=== PATIENT | female | born 1940 | race Caucasian/White ===

== ENCOUNTER 2022-08-13 10:39 | Inpatient (IN) ==
--- NOTE | 2022-08-13 11:44 | XRay Report ---
INDICATION: weakness TECHNIQUE: AP portable upright chest x-ray COMPARISON: Previous chest x-rays dated 01/29/2022, 10/12/2017 FINDINGS: Lungs:Right basilar infiltrate consistent with pneumonia. Follow-up radiographs recommended. No left-sided infiltrate identified Heart, vascular:No significant cardiomegaly. Pulmonary vascularity is normal. No pulmonary edema or pulmonary congestion Mediastinum, nilda:There are surgical clips suggesting previous thyroidectomy. Patient has undergone previous anterior cervical fusion Pleura:No pleural fluid. No pleural-based mass or calcification Skeletal:Negative. IMPRESSION: Right basilar infiltrate consistent with pneumonia Interpreted and Authenticated by: Froylan Sanchez 08/13/22
[2022-08-13 11:45] LABS: POC Calcium, Ionized 1.11 (1.16-1.32); POC Creatinine 3.1 (0.6-1.2); POC Potassium 5.8 (3.3-5.1)
[2022-08-13] MEDS ORDERED: 0.9 % SODIUM CHLORIDE 500 ML IV ONE (11:49)
--- NOTE | 2022-08-13 12:53 | Emergency Department Note ---
Weakness HPI General Chief complaint: Weakness Stated complaint: Weakness Time Seen by Provider: 08/13/22 11:22 Source: patient, family and EMS Mode of arrival: EMS Limitations: no limitations History of Present Illness HPI Narrative: Narrative: This 81-year-old female presents with her complaining of increasing weakness. She had a COVID diagnosis made approximately 14 days ago. He states that she just has no more energy, and expects that she should be better by now. He cites a low grade fever for severeal days. He states that she was vomiting for 3-5 days, but stopped 3 days ago and she did have diarrhea, but that also stopped 3 days ago. She has no shortness of breath. Patient's past medical history is positive for diabetes mellitus type 2, CHF, chronic kidney disease stage V, anemia due to chronic kidney disease, asthma. Related Data Home Medications Medication Instructions Recorded Confirmed vit C 250 mg-vit E 90 mg-zinc 40 1 tab PO BID 08/25/17 06/02/22 mg-copper 1 [id number] capsule (PreserVision AREDS-2) B-D Insulin Syr 3/10 Ml Not Applicable 09/25/19 06/02/22 Bipap Machine and Supplies Not Applicable 09/25/19 06/02/22 Solostar Ultrafine [place] Not Applicable 09/25/19 06/02/22 Therapeutic Diabetic Wide Shoes Not Applicable 09/25/19 06/02/22 blood sugar diagnostic (Accu-Chek #10 ea 09/25/19 06/02/22 Gin Plus test strips) acetaminophen 650 mg 650 mg PO ONCE PRN 06/25/20 06/02/22 tablet,extended release (Tylenol Arthritis Pain) carbidopa 25 mg-levodopa 100 mg 2 tab PO QDAY 09/15/21 06/02/22 tablet insulin glargine 100 unit/mL (3 50 unit subcut BID 03/19/22 06/02/22 mL) subcutaneous pen (Basaglar KwikPen U-100 Insulin) Previous Rx's Medication Instructions Recorded insulin aspart U-100 100 unit/mL See Rx Instructions subcut QDAY 06/25/20 (3 mL) subcutaneous pen (Novolog #45 mL Flexpen U-100 Insulin aspart) Accu Chek Gin Plus w/Device Kit See Rx Instructions Not Applicable 10/15/20 QID #120 ea 4 Wheel walker with seat and brakes #1 ea 05/20/21 allopurinol 100 mg tablet 100 mg PO QDAY #90 tabs 11/24/21 polyethylene glycol 3350 17 17 g PO TID #510 grams 03/02/22 gram/dose oral powder torsemide 100 mg tablet 50 mg PO BID #90 tabs 03/02/22 levothyroxine 75 mcg tablet 75 mcg PO DAILY #90 tabs 03/06/22 BD Pen Needle Short U/F 31G X 8MM #60 ea 03/10/22 clonidine HCl 0.2 mg tablet 0.2 mg PO BID #180 tabs 03/19/22 darbepoetin lissy in polysorbat 60 60 mcg subcut Q4W PRN Anemia #1 mL 04/30/22 mcg/mL in polysorbate injection (Aranesp) spironolactone 25 mg tablet 12.5 mg PO QAM #90 tabs 05/04/22 cholecalciferol (vitamin D3) 50 2,000 unit PO QDAY #90 caps 05/25/22 mcg (2,000 unit) capsule Allergies Allergy/AdvReac Type Severity Reaction Status Date / Time metformin Allergy Severe Unknown Verified 06/02/22 13:43 Terazosin Allergy Severe Unknown Verified 06/02/22 13:43 gabapentin Allergy Unknown swollen Verified 06/02/22 13:43 lips, drowsy, couldn't talk iodine [IODINE] Allergy Unknown Hives Verified 06/02/22 13:43 morphine [MORPHINE] Allergy Unknown Anaphylaxis Verified 06/02/22 13:43 Penicillins [PENICILLINS] Allergy Unknown Itching Verified 06/02/22 13:43 Sulfa (Sulfonamide Allergy Unknown Hives Verified 06/02/22 13:43 Antibiotics) [SULFA (SULFONAMIDE ANTIBIOTICS)] hydrocodone [HYDROCODONE] AdvReac Intermediate Vomiting Verified 06/02/22 13:43 All Diabetic Meds Allergy Severe Unknown Uncoded 06/02/22 13:43 Cleaning supplies ordors Allergy Unknown Difficulty Uncoded 06/02/22 13:43 Breathing SHELLFISH Allergy Unknown Hives Uncoded 06/02/22 13:43 SURGICAL TAPE Allergy Unknown REMOVES Uncoded 06/02/22 13:43 HER SKIN Review of Systems ROS ROS Narrative: Narrative: PFSH Narrative Patient History Narrative: Narrative: Medical/Surgical/Family History All Active Problems (Updated 08/13/22 @ 15:39 by Raghu Vázquez MD) Pneumonia (Acute) Pulmonary emboli (Acute) History of cardiac murmur (Chronic) Bilateral cataracts (Chronic) Personal history of other malignant neoplasm of skin (Chronic) Unspecified chronic bronchitis (Chronic) Unspecified macular degeneration (Chronic) Low back pain (Chronic) Chronic pain (Chronic) Degenerative disc disease, lumbar (Chronic) Radiculopathy, lumbar region (Chronic) Central spinal stenosis (Chronic) Abdominal pain (Acute) Hypertension in stage 5 chronic kidney disease due to type 2 diabetes mellitus (Chronic) Hypercalcemia (Chronic) Anemia in stage 5 chronic kidney disease (Chronic) Chronic kidney disease (CKD) stage G5/A1, glomerular filtration rate (GFR) less than or equal to 15 mL/min/1.73 square meter and albuminuria creatinine ratio less than 30 mg/g (Chronic) Acute cystitis with positive culture (Acute) Brain mass (Acute) Nausea & vomiting (Acute) Diarrhea (Acute) Constipation (Chronic) Dysuria (Acute) Hearing loss, right (Acute) Hyperkalemia, diminished renal excretion (Chronic) Localized edema due to fluid overload (Chronic) Tubular adenoma of colon (Acute) Arthritis of left hip (Acute) Acute right hip pain (Acute) Intractable pain (Acute) CAD (coronary artery disease) (Chronic) Other and unspecified anterior pituitary hyperfunction (Chronic) Asthma (Chronic) Pituitary microadenoma (Chronic) Weight gain, abnormal (Chronic) Left flank pain (Chronic) Arthralgia (Chronic) Radicular pain of lumbosacral region (Chronic) DDD (degenerative disc disease), lumbosacral (Chronic) Left ventricular hypertrophy (Chronic) Congestive cardiomyopathy (Chronic) Fatty liver disease, nonalcoholic (Chronic) DM (diabetes mellitus), type 2 with neurological complications (Chronic) Hx of hypercalcemia (Chronic) Benign neoplasm of parathyroid gland (Chronic) Hyperparathyroidism, unspecified (Chronic) Hyperlipidemia (Chronic) Tremor (Chronic) Hip pain, left (Chronic) Leg pain, left (Chronic) Neuropathy (Chronic) Morbid obesity (Chronic) Parkinsons disease (Chronic) Sleep apnea (Chronic) Personal history of other malignant neoplasm of kidney (Chronic) Acquired absence of kidney (Chronic) Body mass index (BMI) 45.0-49.9, adult (Chronic) group home (current) use of insulin (Chronic) Encounter for long-term (current) use of medications (Chronic) Leg pain, right (Chronic) Thrombophlebitis of lower extremities (Chronic) COPD with exacerbation (Chronic) Diabetes mellitus due to underlying condition with diabetic chronic kidney disease (Chronic) Malignant neoplasm of left kidney, except renal pelvis (Chronic) Anticoagulated on Coumadin (Chronic) Vitamin D deficiency (Chronic) Gout due to renal impairment (Chronic) Muscle weakness (Chronic) Neoplasm of uncertain behavior of left kidney (Chronic) Anasarca (Chronic) Back pain (Chronic) Heart disease (Chronic) Pulmonary hypertension (Chronic) Hypothyroid (Chronic) Microadenoma (Chronic) Pituitary abnormality (Chronic) Breathing problem (Chronic) Hepatitis (Chronic) Headache (Chronic) Colon polyps (Chronic) Thyroid gland disease (Chronic) Elevated blood sugar (Chronic) Jaundice (Chronic) Excessive daytime sleepiness (Chronic) Gallbladder problem (Chronic) DMII (diabetes mellitus, type 2) (Chronic) Depression (Chronic) Fatigue (Chronic) Muscle pain (Chronic) Skin cancer (Chronic) Joint pain (Chronic) Arthritis (Chronic) Neck pain (Chronic) Medical History (Updated 08/13/22 @ 15:39 by Raghu Vázquez MD) Acquired absence of kidney Anasarca Anticoagulated on Coumadin Arthralgia Arthritis Asthma Back pain Benign neoplasm of parathyroid gland Bilateral cataracts Body mass index (BMI) 45.0-49.9, adult Breathing problem CAD (coronary artery disease) Chronic pain Colon polyps Congestive cardiomyopathy COPD with exacerbation DDD (degenerative disc disease), lumbosacral Degenerative disc disease, lumbar Depression Diabetes mellitus due to underlying condition with diabetic chronic kidney disease DM (diabetes mellitus), type 2 with neurological complications DMII (diabetes mellitus, type 2) 1994 Elevated blood sugar Encounter for long-term (current) use of medications Excessive daytime sleepiness Fatigue Fatty liver disease, nonalcoholic Gallbladder problem 1968 Gout due to renal impairment Headache 2014 Heart disease Hepatitis 195 Hip pain, left History of cardiac murmur Hx of hypercalcemia Hyperlipidemia Hyperparathyroidism, unspecified Hypothyroid Jaundice 1957 Joint pain Left flank pain Left ventricular hypertrophy Leg pain, left Leg pain, right continuous churn buttermaker (current) use of insulin Low back pain Malignant neoplasm of left kidney, except renal pelvis Microadenoma Morbid obesity Muscle pain Muscle weakness Neck pain Neoplasm of uncertain behavior of left kidney Neuropathy Other and unspecified anterior pituitary hyperfunction Parkinsons disease Personal history of other malignant neoplasm of kidney Personal history of other malignant neoplasm of skin Pituitary abnormality Pituitary microadenoma Pulmonary hypertension Radicular pain of lumbosacral region Radiculopathy, lumbar region Skin cancer 2011 Sleep apnea Thrombophlebitis of lower extremities Thyroid gland disease Tremor Unspecified chronic bronchitis Unspecified macular degeneration Vitamin D deficiency Weight gain, abnormal Surgical History (Updated 03/05/22 @ 13:28 by Pattie Doty) H/O colonoscopy 2012 Dr. Dong H/O oophorectomy H/O: hysterectomy 1969 at age 26 History of back surgery 2002 x3 History of laminectomy 05/15 L-S History of left nephrectomy (~10/2016) Clear cell carcinoma, stage Tlll History of parathyroid surgery 2013 History of parathyroidectomy excision of parathyroid gland History of surgery 04/16 TF CAITLIN #1, L2-3 bilateral, 04/22/11 w/o sed Hx of cholecystectomy 1968 Family History Mother Arthritis Essential hypertension Cerebrovascular accident Disorder of thyroid Father Arthritis Dementia Diabetes mellitus Cerebrovascular accident Aunts Malignant neoplasm Son , Secondary to Pulmonary Embolus 07/16 Malignant neoplasm Social History Alcohol Intake Frequency: does not drink Substance Use: does not use Exam Narrative Narrative: Narrative: General: No acute distress patient is fatigued but alert and oriented and answers questions cogently. Skin: Edematous diffusely, with no exanthems. Well perfused. Lungs: Occasional crackle no wheezing no bibasilar rales. Abdomen: Morbidly obese; diffusely slightly tender without rebound tenderness, distention rigidity Cardiovascular: Distant but regular rate no murmurs were heard. Periphery: +4/4 peripheral edema bilaterally. Calves and thighs not tender. General Limitations: no limitations Course Vital Signs Vital signs: Vital Signs Temperature 97.4 F 08/13/22 10:40 Pulse Rate 53 L 08/13/22 10:40 Respiratory Rate 20 08/13/22 10:40 Blood Pressure 150/47 08/13/22 10:40 Pulse Oximetry (%) 93 08/13/22 10:40 Oxygen Delivery Method 08/13/22 10:40 Temperature 97.4 F 08/13/22 10:40 Pulse Rate 58 L 08/13/22 13:27 Respiratory Rate 20 08/13/22 10:40 Blood Pressure 160/54 08/13/22 14:48 Pulse Oximetry (%) 93 08/13/22 14:19 Oxygen Delivery Method 08/13/22 10:40 [facility] MDM Narrative Medical decision making narrative: Narrative: Patient's chest x-ray shows a right-sided pneumonia. Patient's blood work showed a normal white count, anemia, and hyperkalemia(6.0) with no EKG changes suggestive of hyperkalemia. She is in a right bundle branch block and left posterior fascicular block but no acute signs of ischemia and no arrhythmias. We will stop the patient's spironolactone for this. She is not on any nonsteroidals or any exogenous sources of potassium. Patient was given azithromycin 500 IV. Patient's D-dimer came back elevated at 1100. Her chronic renal failure prevents a CTA, and V/Q scans are not done at this facility, so we will start the patient on Lovenox. Sepsis Sepsis Identified: No Lab Data Result diagrams: 08/13/22 11:44 08/13/22 11:47 Labs: Lab Results 08/13/22 08/13/22 08/13/22 Range/Units 11:41 11:42 11:44 WBC 5.0 (4.5-11.0) K/mcL RBC 3.48 L (3.59-5.38) M/mcL Hgb 10.8 L (11.2-15.7) g/dL Hct 32.4 L (34.1-44.9) % POC Hct 31.0 L (36-48) MCV 93.1 (80.0-100.0) fL MCH 31.0 (26.0-34.0) pg MCHC 33.3 (31.0-36.0) g/dL RDW 15.0 H (11.5-14.5) % Plt Count 245 (140-440) K/mcL MPV 10.9 (8.8-12.5) fL Immature Gran % (Auto) 1.6 H (0.0-0.5) % Neut % (Auto) 60.8 (38.0-78.0) % Lymph % (Auto) 17.5 (15.5-49.0) % [place] % (Auto) 19.9 H (1.0-12.0) % Eos % (Auto) 0 (0.0-7.0) % Baso % (Auto) 0.2 (0.0-2.0) % Lymph # (Auto) 0.87 L (1.50-4.80) K/mcL [place] # (Auto) 0.99 H (0.10-0.90) K/mcL Eos # (Auto) 0 (0.00-0.70) K/mcL Baso # (Auto) 0.01 (0.00-0.30) K/mcL Immature Gran # 0.08 H (0.00-0.05) K/mcl Absolute Neutrophils 3.03 (1.80-8.00) K/mcL Differential Comment D-Dimer (0.27-0.50) ug/mL POC VBG pH (7.32-7.42) POC VBG pCO2 at Temp (41-51) POC VBG pO2 (25-40) POC VBG HCO3 (24-28) POC VBG Total CO2 (25-29) POC Venous O2 Sat (40-70) POC VBG Base Excess (-2-2) VBG Lactic Acid (0.5-2) POC Sodium 134 (133-145) Sodium POC Potassium 5.8 H (3.3-5.1) Potassium POC Chloride 103 (96-108) Chloride Carbon Dioxide POC Total CO2 28.0 (22-30) Anion Gap POC BUN 113 H* (6-20) BUN Creatinine POC Creatinine 3.1 H (0.6-1.2) GFR Calculation Glucose POC Glucose 89 (70-105) Calcium POC WB Ioniz Calcium 1.11 L (1.16-1.32) Total Bilirubin AST ALT Alkaline Phosphatase NT-Pro-B Natriuret Pep (<450.0) pg/mL Total Protein Albumin Globulin Albumin/Globulin Ratio Urine Color Urine Appearance (Clear) Urine pH (5.0-9.0) Ur Specific [place] (1.000-1.035) Urine Protein (Negative) mg/dL Urine Glucose (UA) (Negative) mg/dL Urine Ketones (Negative) mg/dL Urine Occult Blood (Negative) brianda/mcL Urine Nitrate (Negative) Urine Bilirubin (Negative) mg/dL Urine Urobilinogen mg/dL Ur Leukocyte Esterase (Negative) /uL Urine RBC (0-3) /hpf Urine WBC (0-4) /hpf Ur Squamous Epith Cells (0-4) /hpf Urine Bacteria (0) /hpf Hyaline Casts (0-2) /lph Urine Mucus (None) /hpf Ur Culture Indicated? POC Troponin I 0.04 (0.00-0.08) 08/13/22 08/13/22 08/13/22 Range/Units 11:44 11:44 11:46 WBC (4.5-11.0) K/mcL RBC (3.59-5.38) M/mcL Hgb (11.2-15.7) g/dL Hct (34.1-44.9) % POC Hct (36-48) MCV (80.0-100.0) fL MCH (26.0-34.0) pg MCHC (31.0-36.0) g/dL RDW (11.5-14.5) % Plt Count (140-440) K/mcL MPV (8.8-12.5) fL Immature Gran % (Auto) (0.0-0.5) % Neut % (Auto) (38.0-78.0) % Lymph % (Auto) (15.5-49.0) % [place] % (Auto) (1.0-12.0) % Eos % (Auto) (0.0-7.0) % Baso % (Auto) (0.0-2.0) % Lymph # (Auto) (1.50-4.80) K/mcL [place] # (Auto) (0.10-0.90) K/mcL Eos # (Auto) (0.00-0.70) K/mcL Baso # (Auto) (0.00-0.30) K/mcL Immature Gran # (0.00-0.05) K/mcl Absolute Neutrophils (1.80-8.00) K/mcL Differential Comment D-Dimer 1.65 H (0.27-0.50) ug/mL POC VBG pH 7.41 (7.32-7.42) POC VBG pCO2 at Temp 44.2 (41-51) POC VBG pO2 22 L (25-40) POC VBG HCO3 28.0 (24-28) POC VBG Total CO2 29.0 (25-29) POC Venous O2 Sat 38.0 L (40-70) POC VBG Base Excess 3.0 H (-2-2) VBG Lactic Acid 0.7 (0.5-2) POC Sodium (133-145) Sodium TNP POC Potassium (3.3-5.1) Potassium TNP POC Chloride (96-108) Chloride TNP Carbon Dioxide TNP POC Total CO2 (22-30) Anion Gap TNP POC BUN (6-20) BUN TNP Creatinine TNP POC Creatinine (0.6-1.2) GFR Calculation TNP Glucose TNP POC Glucose (70-105) Calcium TNP POC WB Ioniz Calcium (1.16-1.32) Total Bilirubin TNP AST TNP ALT TNP Alkaline Phosphatase TNP NT-Pro-B Natriuret Pep (<450.0) pg/mL Total Protein TNP Albumin TNP Globulin TNP Albumin/Globulin Ratio TNP Urine Color Urine Appearance (Clear) Urine pH (5.0-9.0) Ur Specific [place] (1.000-1.035) Urine Protein (Negative) mg/dL Urine Glucose (UA) (Negative) mg/dL Urine Ketones (Negative) mg/dL Urine Occult Blood (Negative) brianda/mcL Urine Nitrate (Negative) Urine Bilirubin (Negative) mg/dL Urine Urobilinogen mg/dL Ur Leukocyte Esterase (Negative) /uL Urine RBC (0-3) /hpf Urine WBC (0-4) /hpf Ur Squamous Epith Cells (0-4) /hpf Urine Bacteria (0) /hpf Hyaline Casts (0-2) /lph Urine Mucus (None) /hpf Ur Culture Indicated? POC Troponin I (0.00-0.08) 08/13/22 08/13/22 Range/Units 11:47 13:16 WBC (4.5-11.0) K/mcL RBC (3.59-5.38) M/mcL Hgb (11.2-15.7) g/dL Hct (34.1-44.9) % POC Hct (36-48) MCV (80.0-100.0) fL MCH (26.0-34.0) pg MCHC (31.0-36.0) g/dL RDW (11.5-14.5) % Plt Count (140-440) K/mcL MPV (8.8-12.5) fL Immature Gran % (Auto) (0.0-0.5) % Neut % (Auto) (38.0-78.0) % Lymph % (Auto) (15.5-49.0) % [place] % (Auto) (1.0-12.0) % Eos % (Auto) (0.0-7.0) % Baso % (Auto) (0.0-2.0) % Lymph # (Auto) (1.50-4.80) K/mcL [place] # (Auto) (0.10-0.90) K/mcL Eos # (Auto) (0.00-0.70) K/mcL Baso # (Auto) (0.00-0.30) K/mcL Immature Gran # (0.00-0.05) K/mcl Absolute Neutrophils (1.80-8.00) K/mcL Differential Comment D-Dimer (0.27-0.50) ug/mL POC VBG pH (7.32-7.42) POC VBG pCO2 at Temp (41-51) POC VBG pO2 (25-40) POC VBG HCO3 (24-28) POC VBG Total CO2 (25-29) POC Venous O2 Sat (40-70) POC VBG Base Excess (-2-2) VBG Lactic Acid (0.5-2) POC Sodium (133-145) Sodium TNP POC Potassium (3.3-5.1) Potassium TNP POC Chloride (96-108) Chloride TNP Carbon Dioxide TNP POC Total CO2 (22-30) Anion Gap TNP POC BUN (6-20) BUN TNP Creatinine TNP POC Creatinine (0.6-1.2) GFR Calculation TNP Glucose TNP POC Glucose (70-105) Calcium TNP POC WB Ioniz Calcium (1.16-1.32) Total Bilirubin TNP AST TNP ALT TNP Alkaline Phosphatase TNP NT-Pro-B Natriuret Pep 1139.0 H (<450.0) pg/mL Total Protein TNP Albumin TNP Globulin TNP Albumin/Globulin Ratio TNP Urine Color Lt. yellow Urine Appearance Clear (Clear) Urine pH 6.5 (5.0-9.0) Ur Specific [place] 1.010 (1.000-1.035) Urine Protein 100 A (Negative) mg/dL Urine Glucose (UA) Negative (Negative) mg/dL Urine Ketones Negative (Negative) mg/dL Urine Occult Blood Trace-intact A (Negative) brianda/mcL Urine Nitrate Negative (Negative) Urine Bilirubin Negative (Negative) mg/dL Urine Urobilinogen Normal mg/dL Ur Leukocyte Esterase Moderate A (Negative) /uL Urine RBC 3 (0-3) /hpf Urine WBC 66 H (0-4) /hpf Ur Squamous Epith Cells 2 (0-4) /hpf Urine Bacteria Mod A (0) /hpf Hyaline Casts 1 (0-2) /lph Urine Mucus Few A (None) /hpf Ur Culture Indicated? yes POC Troponin I (0.00-0.08) Discharge Plan Patient/Caregiver Discharge Instructions Pt seen by RADIOSONDE OPERATOR/PA only: No Clinical Impression: Anasarca, Pneumonia, Hyperkalemia, diminished renal excretion, Pulmonary emboli Patient Disposition: Xfer [facility] Follow up with: No,PCP [Primary Care Provider] - Prescriptions: No Action carbidopa-levodopa 25-100 mg tablet 2 tab PO QDAY Rx Instructions: takes three times a day. (DME) 4 Wheel walker with seat and brakes See Rx Instructions .Route .MEDSUPPLY Qty: 1 0RF Rx Instructions: As directed allopurinol 100 mg tablet 100 mg PO QDAY Qty: 90 4RF polyethylene glycol 3350 17 gram/dose powder 17 g PO TID Qty: 510 3RF torsemide 100 mg tablet 50 mg PO BID Qty: 90 3RF levothyroxine 75 mcg tablet 75 mcg PO DAILY Qty: 90 4RF (DME) BD Pen Needle Short U/F 31G X 8MM See Rx Instructions .Route .MEDSUPPLY Qty: 60 12RF Rx Instructions: Inject 6 times per day 2 Lantus 4 sliding scare, regular Not Applicable; Inject 6 times per day 2 Lantus 4 sliding scare, regular Aranesp (in polysorbate) 60 mcg/mL solution 60 mcg subcut Q4W PRN (Reason: Anemia) Qty: 1 0RF spironolactone 25 mg tablet 12.5 mg PO QAM Qty: 90 4RF cholecalciferol (vitamin D3) 50 mcg (2,000 unit) capsule 2,000 unit PO QDAY Qty: 90 4RF B-D Insulin Syr 3/10 Ml NOTAPPLIC Rx Instructions: Pt testing 4 times a day Solostar Ultrafine [place] NOTAPPLIC Rx Instructions: As directed (DME) Accu-Chek Gin Plus test strp Strip See Rx Instructions .ROUTE .MEDSUPPLY Qty: 10 Rx Instructions: As directed Therapeutic Diabetic Wide Shoes NOTAPPLIC Rx Instructions: Receives from [employer] Supplies NOTAPPLIC Rx Instructions: As Directed vit C,I-Wo-otwkh-lutein-zeaxan [PreserVision AREDS-2] [id number] tn-lneb-ky-mg capsule 1 tab PO BID acetaminophen [Tylenol Arthritis Pain] 650 mg tablet extended release 650 mg PO ONCE PRN Novolog Flexpen U-100 Insulin 100 unit/mL (3 mL) insulin pen See Rx Instructions SUB-Q QDAY Qty: 45 12RF Dose Instruction: sliding scale SUB-Q QDAY Rx Instructions: Use twice a day per sliding scale, max of 20units daily Accu Chek Gin Plus w/Device Kit See Rx Instructions NOTAPPLIC QID Qty: 120 12RF Rx Instructions: Use as directed to test Qid Not Applicable four times daily; Use as directed to test Qid Basaglar KwikPen U-100 Insulin 100 unit/mL (3 mL) insulin pen 50 unit SUB-Q BID Rx Instructions: takes 38 mg twice a day. clonidine HCl 0.2 mg tablet 0.2 mg PO BID Qty: 180 3RF
[2022-08-13 14:16] LABS: Basophils # (Auto) 0.01 K/mcL (0.00-0.30); Basophils % (Auto) 0.2 % (0.0-2.0); Eosinophils # (Auto) 0 K/mcL (0.00-0.70); Eosinophils % (Auto) 0 % (0.0-7.0); Hematocrit 32.4 % (34.1-44.9); Hemoglobin 10.8 g/dL (11.2-15.7); Lymphocytes # (Auto) 0.87 K/mcL (1.50-4.80); Lymphocytes % (Auto) 17.5 % (15.5-49.0); Mean Cell Volume 93.1 fL (80.0-100.0); Mean Corpuscular HGB Conc 33.3 g/dL (31.0-36.0); Mean Platelet Volume 10.9 fL (8.8-12.5); Monocytes # (Auto) 0.99 K/mcL (0.10-0.90); Monocytes % (Auto) 19.9 % (1.0-12.0); Neutrophils % (Auto) 60.8 % (38.0-78.0); Platelet Count 245 K/mcL (140-440); RBC 3.48 M/mcL (3.59-5.38)
[2022-08-13] MEDS ORDERED: AZITHROMYCIN 500 MG in DEXTROSE 5% IN WATER 250 ML IV ONE (14:37)
[2022-08-13] MEDS ORDERED: ENOXAPARIN 150 MG/ML SYRINGE SQ ONE (15:06)
[2022-08-13 15:25] LABS: Appearance,Urine CLEAR (Clear); Bacteria,Urine MOD /hpf (0); Bilirubin,Urine NEGATIVE (Negative); Color,Urine LT. YELLOW; Culture Indicated,Urine yes; Glucose,Urine (UA) NEGATIVE (Negative); Ketones,Urine NEGATIVE (Negative); Leukocyte Esterase,Urine MODERATE /uL (Negative); Mucus,Urine FEW /hpf; Nitrate,Urine NEGATIVE (Negative); PH,Urine 6.5 (5.0-9.0); Protein,Urine 100 mg/dL (Negative); Urine Blood TRACE-INTACT ery/mcL (Negative); Urine Hyaline Cast 1 /lph (0-2); Urine RBC 3 /hpf (0-3); Urine Squamous Epithelial Cell 2 /hpf (0-4); Urine WBC 66 /hpf (0-4); Urobilinogen,Urine Normal
--- NOTE | 2022-08-13 16:16 | Internal Med History&Physical ---
HPI History of Present Illness Patient information: Note initiated : 08/13/22 at 4:06 pm Service Date, if different from initiated Date: [] Patient: Bethany Chirinos 81 y/o F admitted on for Weakness. Chief Complaint: [General body weakness, shortness of breath, cough] Chief complaint: General body weakness, shortness of breath, cough History of present illness: Ms. 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 She is unvaccinated against COVID-pneumonia. She was self test positive for COVID- pneumonia 9 days ago. She have symptoms including general body weakness, shortness of breath, nonproductive cough, respiratory wheezings, subjective fever and shaking chills, diaphoresis, and 4 episodes of diarrhea/loose stool. She came to the ED for evaluation today due to the worsening of her symptoms aforementioned. She is saturating in the mid 90s on room air. Labs significant for lack of leukocytosis WBC 5.0. D-dimer 1.65. POC potassium 5.8. POC BUN and creatinine 113 and 3.1, respectively. pro-BNP 1139. Urine indicis showing moderate leukocyte Esterase. Chest x-ray showing right basilar infiltrate consistent with pneumonia. Admission request was called for pneumonia, bacterial versus COVID, as well as hypokalemia. Constitutional Constitutional: Present chills, fever(s) and weakness; Absent excessive sweating or fatigue EENT Eyes: Absent blurry vision, change in vision, loss of vision or other visual disturbances Ears: Absent decreased hearing or tinnitus Nose, mouth and throat: Absent abnormal hearing, dry mouth, headache(s), nasal congestion or sore throat Cardiovascular Cardiovascular: Absent chest pain, chest pain at rest, edema, irregular heart rhythm or palpatations Respiratory Respiratory: Present cough, dyspnea and wheezing Gastrointestinal Gastrointestinal: Present diarrhea; Absent abdominal pain, constipation, nausea or vomiting Musculoskeletal Musculoskeletal: Absent back pain, deformity, limited range of motion, muscle cramps, muscle weakness or numbness Integumentary Integumentary: Absent lesions, rash or wounds Neurological Neurological: Absent focal weakness, headache(s) or numbness Psychiatric Psychiatric: Absent anxiety, depression or hallucinations PFSH PFSH All Active Problems (Updated 08/13/22 @ 16:24 by Kedar Hollingsworth MD) UTI (urinary tract infection) (Acute) Hyperkalemia (Acute) COVID (Acute) Pneumonia (Acute) Pulmonary emboli (Acute) History of cardiac murmur (Chronic) Bilateral cataracts (Chronic) Personal history of other malignant neoplasm of skin (Chronic) Unspecified chronic bronchitis (Chronic) Unspecified macular degeneration (Chronic) Low back pain (Chronic) Chronic pain (Chronic) Degenerative disc disease, lumbar (Chronic) Radiculopathy, lumbar region (Chronic) Central spinal stenosis (Chronic) Abdominal pain (Acute) Hypertension in stage 5 chronic kidney disease due to type 2 diabetes mellitus (Chronic) Hypercalcemia (Chronic) Anemia in stage 5 chronic kidney disease (Chronic) Chronic kidney disease (CKD) stage G5/A1, glomerular filtration rate (GFR) less than or equal to 15 mL/min/1.73 square meter and albuminuria creatinine ratio less than 30 mg/g (Chronic) Acute cystitis with positive culture (Acute) Brain mass (Acute) Nausea & vomiting (Acute) Diarrhea (Acute) Constipation (Chronic) Dysuria (Acute) Hearing loss, right (Acute) Hyperkalemia, diminished renal excretion (Chronic) Localized edema due to fluid overload (Chronic) Tubular adenoma of colon (Acute) Arthritis of left hip (Acute) Acute right hip pain (Acute) Intractable pain (Acute) CAD (coronary artery disease) (Chronic) Other and unspecified anterior pituitary hyperfunction (Chronic) Asthma (Chronic) Pituitary microadenoma (Chronic) Weight gain, abnormal (Chronic) Left flank pain (Chronic) Arthralgia (Chronic) Radicular pain of lumbosacral region (Chronic) DDD (degenerative disc disease), lumbosacral (Chronic) Left ventricular hypertrophy (Chronic) Congestive cardiomyopathy (Chronic) Fatty liver disease, nonalcoholic (Chronic) DM (diabetes mellitus), type 2 with neurological complications (Chronic) Hx of hypercalcemia (Chronic) Benign neoplasm of parathyroid gland (Chronic) Hyperparathyroidism, unspecified (Chronic) Hyperlipidemia (Chronic) Tremor (Chronic) Hip pain, left (Chronic) Leg pain, left (Chronic) Neuropathy (Chronic) Morbid obesity (Chronic) Parkinsons disease (Chronic) Sleep apnea (Chronic) Personal history of other malignant neoplasm of kidney (Chronic) Acquired absence of kidney (Chronic) Body mass index (BMI) 45.0-49.9, adult (Chronic) 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) Encounter for long-term (current) use of medications (Chronic) Leg pain, right (Chronic) Thrombophlebitis of lower extremities (Chronic) COPD with exacerbation (Chronic) Diabetes mellitus due to underlying condition with diabetic chronic kidney disease (Chronic) Malignant neoplasm of left kidney, except renal pelvis (Chronic) Anticoagulated on Coumadin (Chronic) Vitamin D deficiency (Chronic) Gout due to renal impairment (Chronic) Muscle weakness (Chronic) Neoplasm of uncertain behavior of left kidney (Chronic) Anasarca (Chronic) Back pain (Chronic) Heart disease (Chronic) Pulmonary hypertension (Chronic) Hypothyroid (Chronic) Microadenoma (Chronic) Pituitary abnormality (Chronic) Breathing problem (Chronic) Hepatitis (Chronic) Headache (Chronic) Colon polyps (Chronic) Thyroid gland disease (Chronic) Elevated blood sugar (Chronic) Jaundice (Chronic) Excessive daytime sleepiness (Chronic) Gallbladder problem (Chronic) DMII (diabetes mellitus, type 2) (Chronic) Depression (Chronic) Fatigue (Chronic) Muscle pain (Chronic) Skin cancer (Chronic) Joint pain (Chronic) Arthritis (Chronic) Neck pain (Chronic) Medical History (Updated 08/13/22 @ 16:24 by Kedar Hollingsworth MD) Acquired absence of kidney Anasarca Anticoagulated on Coumadin Arthralgia Arthritis Asthma Back pain Benign neoplasm of parathyroid gland Bilateral cataracts Body mass index (BMI) 45.0-49.9, adult Breathing problem CAD (coronary artery disease) Chronic pain Colon polyps Congestive cardiomyopathy COPD with exacerbation DDD (degenerative disc disease), lumbosacral Degenerative disc disease, lumbar Depression Diabetes mellitus due to underlying condition with diabetic chronic kidney disease DM (diabetes mellitus), type 2 with neurological complications DMII (diabetes mellitus, type 2) 1994 Elevated blood sugar Encounter for long-term (current) use of medications Excessive daytime sleepiness Fatigue Fatty liver disease, nonalcoholic Gallbladder problem 1968 Gout due to renal impairment Headache 2015 Heart disease Hepatitis 195 Hip pain, left History of cardiac murmur Hx of hypercalcemia Hyperlipidemia Hyperparathyroidism, unspecified Hypothyroid Jaundice 1957 Joint pain Left flank pain Left ventricular hypertrophy Leg pain, left Leg pain, right nursing home (current) use of insulin Low back pain Malignant neoplasm of left kidney, except renal pelvis Microadenoma Morbid obesity Muscle pain Muscle weakness Neck pain Neoplasm of uncertain behavior of left kidney Neuropathy Other and unspecified anterior pituitary hyperfunction Parkinsons disease Personal history of other malignant neoplasm of kidney Personal history of other malignant neoplasm of skin Pituitary abnormality Pituitary microadenoma Pulmonary hypertension Radicular pain of lumbosacral region Radiculopathy, lumbar region Skin cancer 2011 Sleep apnea Thrombophlebitis of lower extremities Thyroid gland disease Tremor Unspecified chronic bronchitis Unspecified macular degeneration Vitamin D deficiency Weight gain, abnormal Surgical History (Updated 03/05/22 @ 13:28 by Pattie Doty) H/O colonoscopy 2012 Dr. Dong H/O oophorectomy H/O: hysterectomy 1969 at age 26 History of back surgery 2003 x3 History of laminectomy 05/15 L-S History of left nephrectomy (~10/2016) Clear cell carcinoma, stage Tlll History of parathyroid surgery 2013 History of parathyroidectomy excision of parathyroid gland History of surgery 04/16 TF CAITLIN #1, L2-3 bilateral, 04/22/11 w/o sed Hx of cholecystectomy 1968 Family History Mother Arthritis Essential hypertension Cerebrovascular accident Disorder of thyroid Father Arthritis Dementia Diabetes mellitus Cerebrovascular accident Aunts Malignant neoplasm Son , Secondary to Pulmonary Embolus 07/16 Malignant neoplasm Social History marital status: other: Children-2 physical activity: none alcohol intake frequency: does not drink substance use type: does not use MEDS/ALLERGIES Home Medications and Allergies Home Medications Medication Instructions Recorded Confirmed Type vit C 250 mg-vit E 90 mg-zinc 40 1 tab PO BID 08/25/17 06/02/22 History mg-copper 1 lb-[id number] capsule (PreserVision AREDS-2) B-D Insulin Syr 3/10 Ml Not Applicable 09/25/19 06/02/22 History Bipap Machine and Supplies Not Applicable 09/25/19 06/02/22 History Solostar Ultrafine [place] Not Applicable 09/25/19 06/02/22 History Therapeutic Diabetic Wide Shoes Not Applicable 09/25/19 06/02/22 History blood sugar diagnostic (Accu-Chek #10 ea 09/25/19 06/02/22 History Gin Plus test strips) acetaminophen 650 mg 650 mg PO ONCE PRN 06/25/20 06/02/22 History tablet,extended release (Tylenol Arthritis Pain) insulin aspart U-100 100 unit/mL See Rx Instructions subcut QDAY 06/25/20 06/02/22 Rx (3 mL) subcutaneous pen (Novolog #45 mL Flexpen U-100 Insulin aspart) Accu Chek Gin Plus w/Device Kit See Rx Instructions Not Applicable 10/15/20 06/02/22 Rx QID #120 ea 4 Wheel walker with seat and brakes #1 ea 05/20/21 06/02/22 Rx carbidopa 25 mg-levodopa 100 mg 2 tab PO QDAY 09/15/21 06/02/22 History tablet allopurinol 100 mg tablet 100 mg PO QDAY #90 tabs 11/24/21 06/02/22 Rx polyethylene glycol 3350 17 17 g PO TID #510 grams 03/02/22 06/02/22 Rx gram/dose oral powder torsemide 100 mg tablet 50 mg PO BID #90 tabs 03/02/22 06/02/22 Rx levothyroxine 75 mcg tablet 75 mcg PO DAILY #90 tabs 03/06/22 06/02/22 Rx BD Pen Needle Short U/F 31G X 8MM #60 ea 03/10/22 06/02/22 Rx clonidine HCl 0.2 mg tablet 0.2 mg PO BID #180 tabs 03/19/22 06/02/22 Rx insulin glargine 100 unit/mL (3 50 unit subcut BID 03/19/22 06/02/22 History mL) subcutaneous pen (Basaglar KwikPen U-100 Insulin) darbepoetin lissy in polysorbat 60 60 mcg subcut Q4W PRN Anemia #1 mL 04/30/22 06/02/22 Rx mcg/mL in polysorbate injection (Aranesp) spironolactone 25 mg tablet 12.5 mg PO QAM #90 tabs 05/04/22 06/02/22 Rx cholecalciferol (vitamin D3) 50 2,000 unit PO QDAY #90 caps 05/25/22 06/02/22 Rx mcg (2,000 unit) capsule Allergies Allergy/AdvReac Type Severity Reaction Status Date / Time metformin Allergy Severe Unknown Verified 06/02/22 13:43 Terazosin Allergy Severe Unknown Verified 06/02/22 13:43 gabapentin Allergy Unknown swollen Verified 06/02/22 13:43 lips, drowsy, couldn't talk iodine [IODINE] Allergy Unknown Hives Verified 06/02/22 13:43 morphine [MORPHINE] Allergy Unknown Anaphylaxis Verified 06/02/22 13:43 Penicillins [PENICILLINS] Allergy Unknown Itching Verified 06/02/22 13:43 Sulfa (Sulfonamide Allergy Unknown Hives Verified 06/02/22 13:43 Antibiotics) [SULFA (SULFONAMIDE ANTIBIOTICS)] hydrocodone [HYDROCODONE] AdvReac Intermediate Vomiting Verified 06/02/22 13:43 All Diabetic Meds Allergy Severe Unknown Uncoded 06/02/22 13:43 Cleaning supplies ordors Allergy Unknown Difficulty Uncoded 06/02/22 13:43 Breathing SHELLFISH Allergy Unknown Hives Uncoded 06/02/22 13:43 SURGICAL TAPE Allergy Unknown REMOVES Uncoded 06/02/22 13:43 HER SKIN EXAM Constitutional Vitals: Temp Pulse Resp BP Pulse Ox O2 Del Method 36.3 C 53 L 22 150/47 93 08/13/22 10:40 08/13/22 15:48 08/13/22 15:48 08/13/22 15:48 08/13/22 15:48 08/13/22 10:40 General appearance: cooperative, morbidly obese and no acute distress Exam: Masked facies Head Head exam: Present atraumatic and normocephalic Eye Eye exam: Present EOMI and PERRL ENT ENT exam: Present mucous membranes moist, normal exam and normal external ear exam Neck Neck exam: Present normal inspection; Absent lymphadenopathy, tenderness or thyromegaly Respiratory Respiratory exam: Absent accessory muscle use, respiratory distress or wheezes Cardiovascular Cardiovascular exam: Present normal rate and rhythm; Absent JVD GI/Abdominal GI/Abdominal exam: Present normal bowel sounds and soft; Absent organomegaly or tenderness Extremities Exam Extremities exam: Present full ROM, normal capillary refill and normal inspection; Absent tenderness Neurological Exam Neurological exam: Present alert, CN II-XII intact and oriented X3; Absent motor sensory deficit Psychiatric Psychiatric exam: Present normal affect and normal mood; Absent anxious or depressed Skin Skin exam: Present dry and intact DATA Data Completed and Pending Labs: Labs from last 24 hours 08/13/22 08/13/22 08/13/22 13:16 11:47 11:46 WBC RBC Hgb Hct POC Hct MCV MCH MCHC RDW Plt Count MPV Immature Gran % (Auto) Neut % (Auto) Lymph % (Auto) [place] % (Auto) Eos % (Auto) Baso % (Auto) Lymph # (Auto) [place] # (Auto) Eos # (Auto) Baso # (Auto) Immature Gran # Absolute Neutrophils Differential Comment D-Dimer POC VBG pH 7.41 POC VBG pCO2 at Temp 44.2 POC VBG pO2 22 L POC VBG HCO3 28.0 POC VBG Total CO2 29.0 POC Venous O2 Sat 38.0 L POC VBG Base Excess 3.0 H VBG Lactic Acid 0.7 POC Sodium Sodium TNP POC Potassium Potassium TNP POC Chloride Chloride TNP Carbon Dioxide TNP POC Total CO2 Anion Gap TNP POC BUN BUN TNP Creatinine TNP POC Creatinine GFR Calculation TNP Glucose TNP POC Glucose Calcium TNP POC WB Ioniz Calcium Total Bilirubin TNP AST TNP ALT TNP Alkaline Phosphatase TNP NT-Pro-B Natriuret Pep 1139.0 H Total Protein TNP Albumin TNP Globulin TNP Albumin/Globulin Ratio TNP Urine Color Lt. yellow Urine Appearance Clear Urine pH 6.5 Ur Specific [place] 1.010 Urine Protein 100 A Urine Glucose (UA) Negative Urine Ketones Negative Urine Occult Blood Trace-intact A Urine Nitrate Negative Urine Bilirubin Negative Urine Urobilinogen Normal Ur Leukocyte Esterase Moderate A Urine RBC 3 Urine WBC 66 H Ur Squamous Epith Cells 2 Urine Bacteria Mod A Hyaline Casts 1 Urine Mucus Few A Ur Culture Indicated? yes POC Troponin I 08/13/22 08/13/22 08/13/22 11:44 11:44 11:44 WBC 5.0 RBC 3.48 L Hgb 10.8 L Hct 32.4 L POC Hct MCV 93.1 MCH 31.0 MCHC 33.3 RDW 15.0 H Plt Count 245 MPV 10.9 Immature Gran % (Auto) 1.6 H Neut % (Auto) 60.8 Lymph % (Auto) 17.5 [place] % (Auto) 19.9 H Eos % (Auto) 0 Baso % (Auto) 0.2 Lymph # (Auto) 0.87 L [place] # (Auto) 0.99 H Eos # (Auto) 0 Baso # (Auto) 0.01 Immature Gran # 0.08 H Absolute Neutrophils 3.03 Differential Comment D-Dimer 1.65 H POC VBG pH POC VBG pCO2 at Temp POC VBG pO2 POC VBG HCO3 POC VBG Total CO2 POC Venous O2 Sat POC VBG Base Excess VBG Lactic Acid POC Sodium Sodium TNP POC Potassium Potassium TNP POC Chloride Chloride TNP Carbon Dioxide TNP POC Total CO2 Anion Gap TNP POC BUN BUN TNP Creatinine TNP POC Creatinine GFR Calculation TNP Glucose TNP POC Glucose Calcium TNP POC WB Ioniz Calcium Total Bilirubin TNP AST TNP ALT TNP Alkaline Phosphatase TNP NT-Pro-B Natriuret Pep Total Protein TNP Albumin TNP Globulin TNP Albumin/Globulin Ratio TNP Urine Color Urine Appearance Urine pH Ur Specific [place] Urine Protein Urine Glucose (UA) Urine Ketones Urine Occult Blood Urine Nitrate Urine Bilirubin Urine Urobilinogen Ur Leukocyte Esterase Urine RBC Urine WBC Ur Squamous Epith Cells Urine Bacteria Hyaline Casts Urine Mucus Ur Culture Indicated? POC Troponin I 08/13/22 08/13/22 11:42 11:41 WBC RBC Hgb Hct POC Hct 31.0 L MCV MCH MCHC RDW Plt Count MPV Immature Gran % (Auto) Neut % (Auto) Lymph % (Auto) [place] % (Auto) Eos % (Auto) Baso % (Auto) Lymph # (Auto) [place] # (Auto) Eos # (Auto) Baso # (Auto) Immature Gran # Absolute Neutrophils Differential Comment D-Dimer POC VBG pH POC VBG pCO2 at Temp POC VBG pO2 POC VBG HCO3 POC VBG Total CO2 POC Venous O2 Sat POC VBG Base Excess VBG Lactic Acid POC Sodium 134 Sodium POC Potassium 5.8 H Potassium POC Chloride 103 Chloride Carbon Dioxide POC Total CO2 28.0 Anion Gap POC BUN 113 H* BUN Creatinine POC Creatinine 3.1 H GFR Calculation Glucose POC Glucose 89 Calcium POC WB Ioniz Calcium 1.11 L Total Bilirubin AST ALT Alkaline Phosphatase NT-Pro-B Natriuret Pep Total Protein Albumin Globulin Albumin/Globulin Ratio Urine Color Urine Appearance Urine pH Ur Specific [place] Urine Protein Urine Glucose (UA) Urine Ketones Urine Occult Blood Urine Nitrate Urine Bilirubin Urine Urobilinogen Ur Leukocyte Esterase Urine RBC Urine WBC Ur Squamous Epith Cells Urine Bacteria Hyaline Casts Urine Mucus Ur Culture Indicated? POC Troponin I 0.04 A/P Assessment and plan (1) Pneumonia: Status: Acute (2) COVID: Status: Acute (3) Hyperkalemia: Status: Acute (4) 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 Pneumonia, CoVID +/- bacterial superinfection: Inpatient med surg telemetry Serial lactic acid Procalcitonin CEPHEID Blood culture cbc w/ auto diff in the morning to trend WBC Since she was tested positive for CoVID 9 days ago, she is currently outside the therapeutic window for Paxlovid Since she is not currently hypoxic, and given poor renal functions, Remdesivir is contraindicated Supplemental oxygen therapy as needed Rocephin Zithromax Physical therapy evaluation and treatment 2. Hypertension in T2DM with diabetic nephropathy with chronic kidney disease V: Avoid nephrotoxic agents Hold Aldactone due to concurrent hyperkalemia Torsemide Clonidine HgA1c Hold any oral hypoglycemics Insulin Lantus 50 unit BID Insulin Lispro SSI AC HS Accu Check AC HS Hypoglycemia protocol Diabetic/renal diet 3. Hyperkalemia: POC potassium 5.8 without any ECG changes Lasix 40mg IV once Repeat serum potassium level this evening Hold Aldactone 4. h/o congestive heart failure: Saline lock with diuretics first IV Lasix then Torsemide Hold Aldactone due to concurrent hyperkalemia Supplemental oxygen therapy as needed 5. Parkinson's disease: Continue Sinemet 6. Urinary tract infection: Urine culture Blood culture cbc w/ auto diff in the morning to trend WBC Rocephin 7. Hypothyroidism: Continue thyroid replacement therapy 8. h/o brain tumor: Patient's cannot provide further details about her brain tumor, nor is she actively being followed with oncology because she stated that there is nothing to be done about it anyway GI ppx: not currently indicated DVT ppx: Heparin Code status: Full Prognosis: guarded Disposition: inpatient med surg tele; PT Time Spent With Patient Time: Total time spent is greater than 50% in coordination of care (as documented) at patient's floor/unit and/or counseling patient: Total time spent with greater than 50% in coordination of care (as documented) at patient's floor/unit and/or counseling patient:: 50 - 70 minutes
[2022-08-13] MEDS ORDERED: AZITHROMYCIN 500 MG in DEXTROSE 5% IN WATER 250 ML IV SCH (19:00)
[2022-08-13] MEDS ORDERED: DEXTROSE 31 GM ORAL.SUSP PO PRN (19:00)
[2022-08-13] MEDS ORDERED: cefTRIAXone 1 GM in DEXTROSE 5% IN WATER 50 ML IV SCH (19:00)
[2022-08-13] MEDS ORDERED: IPRATROPIUM/ALBUTEROL 3 ML AMPUL.NEB NEB PRN (19:00)
[2022-08-13] MEDS ORDERED: IBUPROFEN 600 MG TABLET PO PRN (19:00)
[2022-08-13] MEDS ORDERED: DEXTROSE 50% 50 ML VIAL IV PRN (19:00)
[2022-08-13] MEDS ORDERED: guaiFENesin/DEXTROMETHORPHAN ORAL SOL PO PRN (19:00)
[2022-08-13] MEDS ORDERED: LOPERAMIDE 2 MG CAPSULE PO PRN (19:00)
[2022-08-13] MEDS: INSULIN LISPRO 1 UNIT/0.01 ML UNIT SQ SCH ×2 (19:15→21:06)
[2022-08-13] MEDS ORDERED: FUROSEMIDE 40 MG/4 ML VIAL IV SCH (20:00)
[2022-08-13] MEDS: cefTRIAXone 1 GM VIAL IV SCH (21:06)
[2022-08-13] MEDS: 0.9 % SODIUM CHLORIDE 10 ML SYRINGE IV SCH (21:06)
[2022-08-13] MEDS: DOCUSATE SODIUM 100 MG CAPSULE PO SCH (21:07)
[2022-08-13] MEDS: ACETAMINOPHEN 325 MG TABLET PO PRN (21:07)
[2022-08-13] MEDS: cloNIDine HCL 0.1 MG TABLET PO SCH (21:07)
[2022-08-13] MEDS: traZODone HCL 50 MG TABLET PO PRN (21:07)
[2022-08-13] MEDS: SENNOSIDES 1 TABLET PO SCH (21:07)
[2022-08-13] MEDS: CARBIDOPA/LEVODOPA 25/100 TABLET PO SCH (21:08)
[2022-08-13] MEDS: TORSEMIDE 20 MG TABLET PO SCH (21:08)
[2022-08-13] MEDS: ONDANSETRON 4 MG/2 ML VIAL IV PRN (22:02)
[2022-08-13 22:25] LABS: Estimated Average Glucose(eAG) 151 mg/dL; Hemoglobin A1C 6.9 % Hgb (4.0-6.0)
[2022-08-14] MEDS: 0.9 % SODIUM CHLORIDE 10 ML SYRINGE IV SCH ×3 (04:09→21:03)
[2022-08-14] MEDS: ACETAMINOPHEN 325 MG TABLET PO PRN ×3 (04:17→21:06)
[2022-08-14] MEDS: INSULIN LISPRO 1 UNIT/0.01 ML UNIT SQ SCH ×4 (07:29→21:28)
[2022-08-14 07:53] LABS: ALT/SGPT < 5 U/L (<40); AST/SGOT 18 U/L (<32); Albumin 2.8 gm/dL (3.2-5.2); Alkaline Phosphatase 72 U/L (39-117); Bilirubin,Total 0.2 mg/dL (0.1-1.0); Blood Urea Nitrogen 79 mg/dL (8-23); Calcium 8.7 mg/dL (8.6-10.4); Carbon Dioxide 25 mmol/L (22-30); Chloride 99 mmol/L (96-108); Globulin 2.7 gm/dL (2.2-3.7); Glomerular Filtration Rate 17; Glucose 93 mg/dL (70-105)
[2022-08-14 08:06] LABS: Basophils # (Auto) 0.01 K/mcL (0.00-0.30); Basophils % (Auto) 0.2 % (0.0-2.0); Eosinophils # (Auto) 0 K/mcL (0.00-0.70); Eosinophils % (Auto) 0 % (0.0-7.0); Hematocrit 29.6 % (34.1-44.9); Hemoglobin 9.4 g/dL (11.2-15.7); Lymphocytes # (Auto) 0.97 K/mcL (1.50-4.80); Lymphocytes % (Auto) 18.9 % (15.5-49.0); Mean Cell Volume 92.8 fL (80.0-100.0); Mean Corpuscular HGB Conc 31.8 g/dL (31.0-36.0); Mean Platelet Volume 9.9 fL (8.8-12.5); Monocytes # (Auto) 1.05 K/mcL (0.10-0.90); Monocytes % (Auto) 20.5 % (1.0-12.0); Neutrophils % (Auto) 58.4 % (38.0-78.0); Platelet Count 209 K/mcL (140-440); RBC 3.19 M/mcL (3.59-5.38); Red Cell Distribution Width 14.6 % (11.5-14.5); WBC 5.1 K/mcL (4.5-11.0)
--- NOTE | 2022-08-14 08:19 | EKG ---
[facility] Minor Care Test Date: 2022-08-13 Pat Name: Bethany Chirinos Department: ED Room: Gender: Female Second Worker: Paul : 1940 Requested By: Raghu Vázquez Order Number: [id number] Reading MD: Froylan Hardy M.D. Measurements Intervals [place] Rate: 51 P: -67 [place]: 155 QRS: 126 QRSD: 167 T: 59 QT: 484 QTc: 446 Interpretive Statements Sinus or ectopic atrial rhythm RBBB and LPFB Electronically Signed On 08-14-2022 8:19:01 PST by Froylan Hardy M.D. /store/[id number]
[2022-08-14] MEDS ORDERED: DOCUSATE SODIUM 100 MG CAPSULE PO SCH (09:00)
[2022-08-14] MEDS ORDERED: LEVOTHYROXINE 75 MCG TABLET PO SCH (09:00)
[2022-08-14] MEDS ORDERED: AZITHROMYCIN 500 MG in DEXTROSE 5% IN WATER 250 ML IV SCH (09:00)
[2022-08-14] MEDS: ALLOPURINOL 100 MG TABLET PO SCH (09:34)
[2022-08-14] MEDS: MULTIVIT,THER IRON,CA,FA & MIN 1 TABLET PO SCH ×2 (09:34→21:05)
[2022-08-14] MEDS: cloNIDine HCL 0.1 MG TABLET PO SCH ×2 (09:34→21:05)
[2022-08-14] MEDS: HEPARIN 5,000 UNIT/ML VIAL SQ SCH ×2 (09:34→21:09)
[2022-08-14] MEDS: DOCUSATE SODIUM 100 MG CAPSULE PO SCH ×2 (09:34→21:06)
[2022-08-14] MEDS: VITAMIN D3 25 MCG TABLET PO SCH (09:35)
[2022-08-14] MEDS: CARBIDOPA/LEVODOPA 25/100 TABLET PO SCH ×3 (09:35→21:05)
[2022-08-14] MEDS: cefTRIAXone 1 GM VIAL IV SCH ×2 (09:35→21:00)
[2022-08-14] MEDS: TORSEMIDE 20 MG TABLET PO SCH ×2 (09:35→21:04)
[2022-08-14] MEDS: ACETAMINOPHEN 325 MG TABLET PO ONE ×2 (10:11→10:28)
[2022-08-14] MEDS: INSULIN GLARGINE, HUMAN 1 UNIT/0.01 ML SQ SCH ×2 (10:11→21:28)
[2022-08-14] MEDS: ONDANSETRON 4 MG/2 ML VIAL IV PRN (10:27)
--- NOTE | 2022-08-14 11:14 | Internal Med Progress Note ---
SUBJECTIVE Subjective Patient information: Note initiated : 08/14/22 at 11:13 am Service Date, if different from initiated Date: [] Patient: Bethany Chirinos 81 y/o F admitted on 08/13/22 for Weakness. Chief Complaint: [] Interval history: Ms. 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 She is unvaccinated against COVID-pneumonia. She was self test positive for COVID- pneumonia 9 days ago. She have symptoms including general body weakness, shortness of breath, nonproductive cough, respiratory wheezings, subjective fever and shaking chills, diaphoresis, and 4 episodes of diarrhea/loose stool. She came to the ED for evaluation today due to the worsening of her symptoms aforementioned. She is saturating in the mid 90s on room air. Labs significant for lack of leukocytosis WBC 5.0. D-dimer 1.65. POC potassium 5.8. POC BUN and creatinine 113 and 3.1, respectively. pro-BNP 1139. Urine indicis showing moderate leukocyte Esterase. Chest x-ray showing right basilar infiltrate consistent with pneumonia. Admission request was called for pneumonia, bacterial versus COVID, as well as hypokalemia. 08/14: Afebrile overnight. Patient is currently on room air. Blood pressure stable. Urine culture growing gram negative bacillus; blood culture no growth to date. Serum potassium level 4.5, serum Cr level 2.6 Patient experience improving degree of shortness of breath. c/o productive cough and respiratory wheezing. c/o chills, denies fever or sweating. Poor appetite. Improving degree of general body weakness. Continue Rocephin while monitoring for culture results. Supplemental oxygen therapy as needed. Continue Torsemide, hold Aldactone. Physical therapy evaluation and treatment for placement planning. Constitutional Vitals: Vital Signs Temp Pulse Resp BP Pulse Ox O2 Del Method O2 Flow Rate 36.7 C 47 L 14 126/37 100 2 08/14/22 08:01 08/14/22 08:01 08/14/22 08:01 08/14/22 08:01 08/14/22 08:01 08/14/22 04:01 08/14/22 04:01 Period Temp Pulse Resp BP Sys/Dunaway Pulse Ox O2 Del Method O2 Flow Rate Last 24 Hr 35.9 C-36.7 C 47-70 14-25 109-179/35-96 88-100 Nasal Cannula- Room Air 2-2 Intake and Output 08/13/22 08/14/22 08/14/22 19:59 03:59 11:59 Intake Total 750 120 480 Output Total 3 1 Balance 750 117 479 Weight 117.344 kg 117.344 kg Intake & Output: Intake & Output 08/13/22 08/14/22 08/14/22 19:59 03:59 11:59 Intake Total 750 120 480 Output Total 3 1 Balance 750 117 479 Weight 117.344 kg 117.344 kg Intake: IV 750 Sodium Chloride 0.9% 500 ml @ 500 Wide Open IV BOLUS ONE Rx#: [id number] Zithromax 500 mg In Dextrose 5% 250 in Water 250 ml @ 250 mls/hr IV ONCE ONE Rx#:[id number] Oral 120 480 Output: # of times incontinent of urine 3 1 General appearance: cooperative, morbidly obese and no acute distress Exam: Masked facies Head Head exam: Present atraumatic and normal inspection Eye Eye exam: Present normal appearance ENT ENT exam: Present mucous membranes moist, normal exam and normal external ear exam Neck Neck exam: Present normal inspection Respiratory Respiratory exam: Present normal respiratory exam Cardiovascular Cardiovascular exam: Present normal rate and rhythm GI/Abdominal GI/Abdominal exam: Present normal bowel sounds Extremities Exam Extremities exam: Present pedal edema Back Exam Back exam: Present normal inspection Neurological Exam Neurological exam: Present alert and oriented X3 Skin Skin exam: Present intact and warm OBJ DATA Labs CBC & Chem 7: 08/14/22 05:55 08/14/22 05:55 Labs: Abnormal Lab Results 08/14/22 08/14/22 08/13/22 05:55 05:55 19:27 RBC 3.19 L Hgb 9.4 L Hct 29.6 L POC Hct RDW 14.6 H Immature Gran % (Auto) 2.0 H Richardson % (Auto) 20.5 H Lymph # (Auto) 0.97 L Richardson # (Auto) 1.05 H Immature Gran # 0.10 H D-Dimer POC VBG pO2 POC Venous O2 Sat POC VBG Base Excess POC Potassium POC BUN BUN 79 H Creatinine 2.6 H POC Creatinine Hemoglobin A1c 6.9 H POC WB Ioniz Calcium NT-Pro-B Natriuret Pep Total Protein 5.5 L Albumin 2.8 L Procalcitonin Urine Protein Urine Occult Blood Ur Leukocyte Esterase Urine WBC Urine Bacteria Urine Mucus 08/13/22 08/13/22 08/13/22 13:16 11:47 11:46 RBC Hgb Hct POC Hct RDW Immature Gran % (Auto) Richardson % (Auto) Lymph # (Auto) Richardson # (Auto) Immature Gran # D-Dimer POC VBG pO2 22 L POC Venous O2 Sat 38.0 L POC VBG Base Excess 3.0 H POC Potassium POC BUN BUN Creatinine POC Creatinine Hemoglobin A1c POC WB Ioniz Calcium NT-Pro-B Natriuret Pep 1139.0 H Total Protein Albumin Procalcitonin Urine Protein 100 A Urine Occult Blood Trace-intact A Ur Leukocyte Esterase Moderate A Urine WBC 66 H Urine Bacteria Mod A Urine Mucus Few A 08/13/22 08/13/22 08/13/22 11:44 11:44 11:44 RBC 3.48 L Hgb 10.8 L Hct 32.4 L POC Hct RDW 15.0 H Immature Gran % (Auto) 1.6 H Richardson % (Auto) 19.9 H Lymph # (Auto) 0.87 L Richardson # (Auto) 0.99 H Immature Gran # 0.08 H D-Dimer 1.65 H POC VBG pO2 POC Venous O2 Sat POC VBG Base Excess POC Potassium POC BUN BUN Creatinine POC Creatinine Hemoglobin A1c POC WB Ioniz Calcium NT-Pro-B Natriuret Pep Total Protein Albumin Procalcitonin 0.40 H Urine Protein Urine Occult Blood Ur Leukocyte Esterase Urine WBC Urine Bacteria Urine Mucus 08/13/22 11:42 RBC Hgb Hct POC Hct 31.0 L RDW Immature Gran % (Auto) Richardson % (Auto) Lymph # (Auto) Richardson # (Auto) Immature Gran # D-Dimer POC VBG pO2 POC Venous O2 Sat POC VBG Base Excess POC Potassium 5.8 H POC BUN 113 H* BUN Creatinine POC Creatinine 3.1 H Hemoglobin A1c POC WB Ioniz Calcium 1.11 L NT-Pro-B Natriuret Pep Total Protein Albumin Procalcitonin Urine Protein Urine Occult Blood Ur Leukocyte Esterase Urine WBC Urine Bacteria Urine Mucus Meds: Medications Acetaminophen (Acetaminophen 325 Mg Tablet) 650 mg PO Q6HP PRN; Protocol PRN Reason: Per Pain Protocol/Fever > 101 Last Admin: 08/14/22 04:17 Dose: 650 mg Albuterol/Ipratropium (Ipratropium/Albuterol 3 Ml Ampul.Neb) 3 ml NEB Q4HRT PRN PRN Reason: Wheezing Allopurinol (Allopurinol 100 Mg Tablet) 100 mg PO QDAY [facility] Last Admin: 08/14/22 09:34 Dose: 100 mg Azithromycin (Azithromycin 250 Mg Tablet) 500 mg PO DAILY [facility] Stop: 08/15/22 12:00 Carbidopa/Levodopa (Carbidopa/Levodopa 25/100 Tablet) 2 tab PO TID [facility] Last Admin: 08/14/22 09:35 Dose: 2 tab Ceftriaxone Sodium (Ceftriaxone 1 Gm Vial) 1 gm IV Q24H [facility] Last Admin: 08/14/22 09:35 Dose: 1 gm Clonidine HCl (Clonidine Hcl 0.1 Mg Tablet) 0.2 mg PO BID [facility] Last Admin: 08/14/22 09:34 Dose: 0.2 mg Dextrose (Dextrose 50% 50 Ml Vial) 0 ml IV UD PRN PRN Reason: Per Sliding Scale Diagnostic Test (Pha) (Accu-Chek 1 Each Strip) 1 each FS ACHS [facility] Last Admin: 08/14/22 07:29 Dose: 1 each Docusate Sodium (Docusate Sodium 100 Mg Capsule) 100 mg PO BID [facility] Last Admin: 08/14/22 09:34 Dose: 100 mg Glucose (Dextrose 31 Gm Oral.Susp) 15 gm PO PRN PRN PRN Reason: Hypoglycemia Guaifenesin (Guaifenesin/Dextromethorphan Oral Allie) 10 ml PO Q4HP PRN PRN Reason: Cough Last Admin: 08/13/22 21:08 Dose: 10 ml Heparin Sodium (Porcine) (Heparin 5,000 Unit/Ml Vial) 5,000 unit SQ Q12 [facility] Last Admin: 08/14/22 09:34 Dose: 5,000 unit Azithromycin 500 mg/ Dextrose 250 mls @ 250 mls/hr IV Q24H [facility]; Protocol Stop: 08/14/22 12:00 Last Admin: 08/14/22 10:11 Dose: 250 mls/hr Ibuprofen (Ibuprofen 600 Mg Tablet) 600 mg PO QIDP PRN; Protocol PRN Reason: Per Pain Protocol/Fever > 101 Insulin Glargine (Insulin Glargine, Human 1 Unit/0.01 Ml) 38 unit SQ BID [facility] Last Admin: 08/14/22 10:11 Dose: Not Given Insulin Human Lispro (Insulin Lispro 1 Unit/0.01 Ml Unit) 0 unit SQ ACHS [facility]; Protocol Last Admin: 08/14/22 07:29 Dose: Not Given Iron Carb/Multivit/Vending Route Driver/Folic Acid (Multivit,Ther Iron,Ca,Fa & Min 1 Tablet) 1 tab PO BID [facility] Last Admin: 08/14/22 09:34 Dose: 1 tab Levothyroxine Sodium (Levothyroxine 75 Mcg Tablet) 75 mcg PO 0730 [facility] Loperamide HCl (Loperamide 2 Mg Capsule) 2 mg PO PRN PRN PRN Reason: Diarrhea Ondansetron HCl (Ondansetron 4 Mg/2 Ml Vial) 4 mg IV Q6HP PRN PRN Reason: Nausea And Vomiting Last Admin: 08/14/22 10:27 Dose: 4 mg Senna (Sennosides 1 Tablet) 2 tab PO HS [facility] Last Admin: 08/13/22 21:07 Dose: 2 tab Sodium Chloride (0.9 % Sodium Chloride 10 Ml Syringe) 10 ml IV Q8 [facility] Last Admin: 08/14/22 04:09 Dose: 10 ml Torsemide (Torsemide 20 Mg Tablet) 50 mg PO BID [facility] Last Admin: 08/14/22 09:35 Dose: 50 mg Trazodone HCl (Trazodone Hcl 50 Mg Tablet) 25 mg PO HSP PRN PRN Reason: Insomnia Last Admin: 08/13/22 21:07 Dose: 25 mg Vitamin D (Vitamin D3 25 Mcg Tablet) 50 mcg PO QDAY [facility] Last Admin: 08/14/22 09:35 Dose: 50 mcg A/P Assessment and plan (1) Pneumonia: Status: Acute (2) COVID: Status: Acute (3) Hyperkalemia: Status: Acute (4) 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 Pneumonia, CoVID +/- bacterial superinfection: Inpatient med surg telemetry Serial lactic acid 0.9 Procalcitonin CEPHEID Blood culture cbc w/ auto diff in the morning to trend WBC Since she was tested positive for CoVID 9 days ago, she is currently outside the therapeutic window for Paxlovid Since she is not currently hypoxic, and given poor renal functions, Remdesivir is contraindicated Supplemental oxygen therapy as needed Rocephin Zithromax Physical therapy evaluation and treatment 2. Hypertension in T2DM with diabetic nephropathy with chronic kidney disease V: Avoid nephrotoxic agents Hold Aldactone due to concurrent hyperkalemia Torsemide Clonidine HgA1c 6.9 Hold any oral hypoglycemics Insulin Lantus 50 unit BID Insulin Lispro SSI AC HS Accu Check AC HS Hypoglycemia protocol Diabetic/renal diet 3. Hyperkalemia: RESOLVED Serum potassium 5.8-->4.5 s/p Lasix 40mg IV once Repeat serum potassium level this evening Hold Aldactone 4. h/o congestive heart failure: Saline lock with diuretics first IV Lasix then Torsemide Hold Aldactone due to concurrent hyperkalemia Supplemental oxygen therapy as needed 5. Parkinson's disease: Continue Sinemet 6. Urinary tract infection: Urine culture, gram negative bacillus Blood culture, no growth to date cbc w/ auto diff in the morning to trend WBC Rocephin 7. Hypothyroidism: Continue thyroid replacement therapy 8. h/o brain tumor: Patient's cannot provide further details about her brain tumor, nor is she actively being followed with oncology because she stated that there is nothing to be done about it anyway GI ppx: not currently indicated DVT ppx: Heparin Code status: DNR Prognosis: guarded Disposition: inpatient med surg tele; PT Time Spent With Patient Time: Total time spent is greater than 50% in coordination of care (as documented) at patient's floor/unit and/or counseling patient: Total time spent with greater than 50% in coordination of care (as documented) at patient's floor/unit and/or counseling patient:: 25 - 35 minutes QUALITY VTE Deep Vein Thrombosis/Pulmonary Embolism Present on Admission: No
[2022-08-14] MEDS: SENNOSIDES 1 TABLET PO SCH (21:05)
[2022-08-14] MEDS: traZODone HCL 50 MG TABLET PO PRN (21:06)
[2022-08-15] MEDS: ACETAMINOPHEN 325 MG TABLET PO PRN ×2 (02:00→18:43)
[2022-08-15] MEDS: 0.9 % SODIUM CHLORIDE 10 ML SYRINGE IV SCH ×4 (06:09→21:15)
[2022-08-15 06:51] LABS: Basophils # (Auto) 0.01 K/mcL (0.00-0.30); Basophils % (Auto) 0.2 % (0.0-2.0); Eosinophils # (Auto) 0.02 K/mcL (0.00-0.70); Eosinophils % (Auto) 0.4 % (0.0-7.0); Hematocrit 31.9 % (34.1-44.9); Hemoglobin 9.9 g/dL (11.2-15.7); Lymphocytes # (Auto) 1.02 K/mcL (1.50-4.80); Mean Cell Volume 94.4 fL (80.0-100.0); Mean Platelet Volume 9.6 fL (8.8-12.5); Monocytes # (Auto) 0.76 K/mcL (0.10-0.90); Monocytes % (Auto) 15.7 % (1.0-12.0); Platelet Count 237 K/mcL (140-440); RBC 3.38 M/mcL (3.59-5.38); Red Cell Distribution Width 14.7 % (11.5-14.5); WBC 4.9 K/mcL (4.5-11.0)
[2022-08-15 07:04] LABS: ALT/SGPT < 5 U/L (<40); AST/SGOT 18 U/L (<32); Albumin 2.7 gm/dL (3.2-5.2); Albumin/Globulin Ratio 0.9 (1.0-2.3); Alkaline Phosphatase 67 U/L (39-117); Bilirubin,Total < 0.2 mg/dL (0.1-1.0); Blood Urea Nitrogen 76 mg/dL (8-23); Carbon Dioxide 23 mmol/L (22-30); Chloride 101 mmol/L (96-108); Glomerular Filtration Rate 15; Glucose 87 mg/dL (70-105)
[2022-08-15] MEDS: HEPARIN 5,000 UNIT/ML VIAL SQ SCH ×2 (08:14→22:06)
[2022-08-15] MEDS: CARBIDOPA/LEVODOPA 25/100 TABLET PO SCH ×3 (08:14→22:07)
[2022-08-15] MEDS: ALLOPURINOL 100 MG TABLET PO SCH (08:14)
[2022-08-15] MEDS: DOCUSATE SODIUM 100 MG CAPSULE PO SCH ×2 (08:15→22:07)
[2022-08-15] MEDS: TORSEMIDE 20 MG TABLET PO SCH ×2 (08:15→22:07)
[2022-08-15] MEDS: cloNIDine HCL 0.1 MG TABLET PO SCH ×2 (08:15→22:07)
[2022-08-15] MEDS: LEVOTHYROXINE 75 MCG TABLET PO SCH (08:15)
[2022-08-15] MEDS: MULTIVIT,THER IRON,CA,FA & MIN 1 TABLET PO SCH ×2 (08:15→21:00)
[2022-08-15] MEDS: VITAMIN D3 25 MCG TABLET PO SCH (08:16)
[2022-08-15] MEDS: INSULIN GLARGINE, HUMAN 1 UNIT/0.01 ML SQ SCH ×2 (08:16→22:06)
[2022-08-15] MEDS: INSULIN LISPRO 1 UNIT/0.01 ML UNIT SQ SCH ×4 (08:16→21:00)
[2022-08-15] MEDS ORDERED: AZITHROMYCIN 250 MG TABLET PO SCH (09:00)
--- NOTE | 2022-08-15 09:16 | Internal Med Progress Note ---
SUBJECTIVE Subjective Patient information: Note initiated : 08/15/22 at 9:11 am Service Date, if different from initiated Date: [] Patient: Bethany Chirinos 81 y/o F admitted on 08/13/22 for Weakness. Chief Complaint: [] Interval history: Ms. 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 She is unvaccinated against COVID-pneumonia. She was self test positive for COVID- pneumonia 9 days ago. She have symptoms including general body weakness, shortness of breath, nonproductive cough, respiratory wheezings, subjective fever and shaking chills, diaphoresis, and 4 episodes of diarrhea/loose stool. She came to the ED for evaluation today due to the worsening of her symptoms aforementioned. She is saturating in the mid 90s on room air. Labs significant for lack of leukocytosis WBC 5.0. D-dimer 1.65. POC potassium 5.8. POC BUN and creatinine 113 and 3.1, respectively. pro-BNP 1139. Urine indicis showing moderate leukocyte Esterase. Chest x-ray showing right basilar infiltrate consistent with pneumonia. Admission request was called for pneumonia, bacterial versus COVID, as well as hypokalemia. 08/14: Afebrile overnight. Patient is currently on room air. Blood pressure stable. Urine culture growing gram negative bacillus; blood culture no growth to date. Serum potassium level 4.5, serum Cr level 2.6 Patient experience improving degree of shortness of breath. c/o productive cough and respiratory wheezing. c/o chills, denies fever or sweating. Poor appetite. Improving degree of general body weakness. Continue Rocephin while monitoring for culture results. Supplemental oxygen therapy as needed. Continue Torsemide, hold Aldactone. Physical therapy evaluation and treatment for placement planning. 08/15: Patient has been afebrile overnight. Patient is currently on 1 L/min of nasal cannula supplemental oxygen. Urine culture growing gram-negative bacillus, bloo d culture no growth today. Patient is complaining of improving degree of shortness of breath. She is committing of productive cough. She does not have any respiratory wheezings. She is coming of chills but denies any fever or diaphoresis. Denies any chest pain. Improving degree of general body weakness. Continue Rocephin while monitoring for culture results. Supplemental oxygen therapy as needed. Continue Torsemide, hold Aldactone due to recent hyperkalemia. Physical therapy evaluation and treatment for placement planning. Constitutional Vitals: Vital Signs Temp Pulse Resp BP Pulse Ox O2 Del Method O2 Flow Rate 36.3 C 51 L 18 129/48 96 1 08/15/22 08:01 08/15/22 09:04 08/15/22 09:04 08/15/22 08:01 08/15/22 09:04 08/15/22 05:15 08/15/22 05:15 Period Temp Pulse Resp BP Sys/Dunaway Pulse Ox O2 Del Method O2 Flow Rate Last 24 Hr 35.9 C-36.3 C 46-57 13-18 91-145/34-118 1-99 Nasal Cannula- Nasal Cannula 1-1 Intake and Output 08/14/22 08/15/22 08/15/22 19:59 03:59 11:59 Intake Total 480 360 Output Total 2 650 Balance 478 -290 Weight 117.344 kg 118.161 kg Intake & Output: Intake & Output 08/14/22 08/15/22 08/15/22 19:59 03:59 11:59 Intake Total 480 360 Output Total 2 650 Balance 478 -290 Weight 117.344 kg 118.161 kg Intake: Oral 480 360 Output: Void Amount 650 # of times incontinent of urine 2 Other: Meal Lunch Percent of Meal Consumed 25% Feeding Ability Assist with Tray Set Up Urine Appearance Clear External Urinary Catheter Clear Urine Color Yellow External Urinary Catheter Yellow General appearance: cooperative, morbidly obese and no acute distress Exam: Masked facies Head Head exam: Present atraumatic and normal inspection Eye Eye exam: Present normal appearance ENT ENT exam: Present mucous membranes moist, normal exam and normal external ear exam Neck Neck exam: Present normal inspection Respiratory Respiratory exam: Present normal respiratory exam Cardiovascular Cardiovascular exam: Present normal rate and rhythm GI/Abdominal GI/Abdominal exam: Present normal bowel sounds Back Exam Back exam: Present normal inspection Neurological Exam Neurological exam: Present alert and oriented X3 Skin Skin exam: Present intact and warm OBJ DATA Labs CBC & Chem 7: 08/15/22 05:58 08/15/22 05:58 Labs: Abnormal Lab Results 08/15/22 08/15/22 08/14/22 05:58 05:58 05:55 RBC 3.38 L Hgb 9.9 L Hct 31.9 L POC Hct RDW 14.7 H Immature Gran % (Auto) 2.7 H Luna % (Auto) 15.7 H Lymph # (Auto) 1.02 L Luna # (Auto) Immature Gran # 0.13 H D-Dimer POC VBG pO2 POC Venous O2 Sat POC VBG Base Excess POC Potassium POC BUN BUN 76 H 79 H Creatinine 2.9 H 2.6 H POC Creatinine Hemoglobin A1c POC WB Ioniz Calcium NT-Pro-B Natriuret Pep Total Protein 5.7 L 5.5 L Albumin 2.7 L 2.8 L Albumin/Globulin Ratio 0.9 L Procalcitonin Urine Protein Urine Occult Blood Ur Leukocyte Esterase Urine WBC Urine Bacteria Urine Mucus 08/14/22 08/13/22 08/13/22 05:55 19:27 13:16 RBC 3.19 L Hgb 9.4 L Hct 29.6 L POC Hct RDW 14.6 H Immature Gran % (Auto) 2.0 H Luna % (Auto) 20.5 H Lymph # (Auto) 0.97 L Luna # (Auto) 1.05 H Immature Gran # 0.10 H D-Dimer POC VBG pO2 POC Venous O2 Sat POC VBG Base Excess POC Potassium POC BUN BUN Creatinine POC Creatinine Hemoglobin A1c 6.9 H POC WB Ioniz Calcium NT-Pro-B Natriuret Pep Total Protein Albumin Albumin/Globulin Ratio Procalcitonin Urine Protein 100 A Urine Occult Blood Trace-intact A Ur Leukocyte Esterase Moderate A Urine WBC 66 H Urine Bacteria Mod A Urine Mucus Few A 08/13/22 08/13/22 08/13/22 11:47 11:46 11:44 RBC Hgb Hct POC Hct RDW Immature Gran % (Auto) Luna % (Auto) Lymph # (Auto) Luna # (Auto) Immature Gran # D-Dimer POC VBG pO2 22 L POC Venous O2 Sat 38.0 L POC VBG Base Excess 3.0 H POC Potassium POC BUN BUN Creatinine POC Creatinine Hemoglobin A1c POC WB Ioniz Calcium NT-Pro-B Natriuret Pep 1139.0 H Total Protein Albumin Albumin/Globulin Ratio Procalcitonin 0.40 H Urine Protein Urine Occult Blood Ur Leukocyte Esterase Urine WBC Urine Bacteria Urine Mucus 08/13/22 08/13/22 08/13/22 11:44 11:44 11:42 RBC 3.48 L Hgb 10.8 L Hct 32.4 L POC Hct 31.0 L RDW 15.0 H Immature Gran % (Auto) 1.6 H Luna % (Auto) 19.9 H Lymph # (Auto) 0.87 L Luna # (Auto) 0.99 H Immature Gran # 0.08 H D-Dimer 1.65 H POC VBG pO2 POC Venous O2 Sat POC VBG Base Excess POC Potassium 5.8 H POC BUN 113 H* BUN Creatinine POC Creatinine 3.1 H Hemoglobin A1c POC WB Ioniz Calcium 1.11 L NT-Pro-B Natriuret Pep Total Protein Albumin Albumin/Globulin Ratio Procalcitonin Urine Protein Urine Occult Blood Ur Leukocyte Esterase Urine WBC Urine Bacteria Urine Mucus Meds: Medications Acetaminophen (Acetaminophen 325 Mg Tablet) 650 mg PO Q6HP PRN; Protocol PRN Reason: Per Pain Protocol/Fever > 101 Last Admin: 08/15/22 02:00 Dose: 650 mg Albuterol/Ipratropium (Ipratropium/Albuterol 3 Ml Ampul.Neb) 3 ml NEB Q4HRT PRN PRN Reason: Wheezing Allopurinol (Allopurinol 100 Mg Tablet) 100 mg PO QDAY [facility] Last Admin: 08/15/22 08:14 Dose: 100 mg Azithromycin (Azithromycin 250 Mg Tablet) 500 mg PO DAILY [facility] Stop: 08/15/22 12:00 Last Admin: 08/15/22 08:14 Dose: 500 mg Carbidopa/Levodopa (Carbidopa/Levodopa 25/100 Tablet) 2 tab PO TID [facility] Last Admin: 08/15/22 08:14 Dose: 2 tab Ceftriaxone Sodium (Ceftriaxone 1 Gm Vial) 1 gm IV Q24H [facility] Last Admin: 08/14/22 21:00 Dose: 1 gm Clonidine HCl (Clonidine Hcl 0.1 Mg Tablet) 0.2 mg PO BID [facility] Last Admin: 08/15/22 08:15 Dose: 0.2 mg Dextrose (Dextrose 50% 50 Ml Vial) 0 ml IV UD PRN PRN Reason: Per Sliding Scale Diagnostic Test (Pha) (Accu-Chek 1 Each Strip) 1 each FS ACHS [facility] Last Admin: 08/15/22 08:16 Dose: 1 each Docusate Sodium (Docusate Sodium 100 Mg Capsule) 100 mg PO BID [facility] Last Admin: 08/15/22 08:15 Dose: 100 mg Glucose (Dextrose 31 Gm Oral.Susp) 15 gm PO PRN PRN PRN Reason: Hypoglycemia Guaifenesin (Guaifenesin/Dextromethorphan Oral Allie) 10 ml PO Q4HP PRN PRN Reason: Cough Last Admin: 08/13/22 21:08 Dose: 10 ml Heparin Sodium (Porcine) (Heparin 5,000 Unit/Ml Vial) 5,000 unit SQ Q12 [facility] Last Admin: 08/15/22 08:14 Dose: 5,000 unit Ibuprofen (Ibuprofen 600 Mg Tablet) 600 mg PO QIDP PRN; Protocol PRN Reason: Per Pain Protocol/Fever > 101 Insulin Glargine (Insulin Glargine, Human 1 Unit/0.01 Ml) 38 unit SQ BID [facility] Last Admin: 08/15/22 08:16 Dose: 38 units Insulin Human Lispro (Insulin Lispro 1 Unit/0.01 Ml Unit) 0 unit SQ ACHS [facility]; Protocol Last Admin: 08/15/22 08:16 Dose: Not Given Iron Carb/Multivit/[place]ajo/Folic Acid (Multivit,Ther Iron,Ca,Fa & Min 1 Tablet) 1 tab PO BID [facility] Last Admin: 08/15/22 08:15 Dose: 1 tab Levothyroxine Sodium (Levothyroxine 75 Mcg Tablet) 75 mcg PO 0730 [facility] Last Admin: 08/15/22 08:15 Dose: 75 mcg Loperamide HCl (Loperamide 2 Mg Capsule) 2 mg PO PRN PRN PRN Reason: Diarrhea Ondansetron HCl (Ondansetron 4 Mg/2 Ml Vial) 4 mg IV Q6HP PRN PRN Reason: Nausea And Vomiting Last Admin: 08/14/22 10:27 Dose: 4 mg Senna (Sennosides 1 Tablet) 2 tab PO HS [facility] Last Admin: 08/14/22 21:05 Dose: 2 tab Sodium Chloride (0.9 % Sodium Chloride 10 Ml Syringe) 10 ml IV Q8 [facility] Last Admin: 08/15/22 06:09 Dose: 10 ml Torsemide (Torsemide 20 Mg Tablet) 50 mg PO BID [facility] Last Admin: 08/15/22 08:15 Dose: 50 mg Trazodone HCl (Trazodone Hcl 50 Mg Tablet) 25 mg PO HSP PRN PRN Reason: Insomnia Last Admin: 08/14/22 21:06 Dose: 25 mg Vitamin D (Vitamin D3 25 Mcg Tablet) 50 mcg PO QDAY [facility] Last Admin: 08/15/22 08:16 Dose: 50 mcg A/P Assessment and plan (1) Pneumonia: Status: Acute (2) COVID: Status: Acute (3) Hyperkalemia: Status: Acute (4) 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 Pneumonia, CoVID +/- bacterial superinfection: Inpatient med surg telemetry Serial lactic acid 0.9 Procalcitonin 0.40 CEPHEID Blood culture, no growth to date cbc w/ auto diff in the morning to trend WBC Since she was tested positive for CoVID 9 days ago, she is currently outside the therapeutic window for Paxlovid Given poor renal functions, Remdesivir is contraindicated Supplemental oxygen therapy as needed Rocephin Zithromax Physical therapy evaluation and treatment 2. Hypertension in T2DM with diabetic nephropathy with chronic kidney disease V: Avoid nephrotoxic agents Hold Aldactone due to concurrent hyperkalemia Torsemide Clonidine HgA1c 6.9 Hold any oral hypoglycemics Insulin Lantus 50 unit BID Insulin Lispro SSI AC HS Accu Check AC HS Hypoglycemia protocol Diabetic/renal diet 3. Hyperkalemia: RESOLVED Serum potassium 5.8-->4.5-->4.1 s/p Lasix 40mg IV once Repeat serum potassium level this evening Hold Aldactone due to recent hyperkalemia 4. h/o congestive heart failure: Saline lock with diuretics first IV Lasix then Torsemide Hold Aldactone due to recent hyperkalemia Supplemental oxygen therapy as needed 5. Parkinson's disease: Continue Sinemet 6. Urinary tract infection: Urine culture, gram negative bacillus Blood culture, no growth to date cbc w/ auto diff in the morning to trend WBC Rocephin 7. Hypothyroidism: Continue thyroid replacement therapy 8. h/o brain tumor: Patient's cannot provide further details about her brain tumor, nor is she acti vely being followed with oncology because she stated that there is nothing to be done about it anyway GI ppx: not currently indicated DVT ppx: Heparin Code status: DNR Prognosis: Stable Disposition: inpatient med surg tele; PT Time Spent With Patient Time: Total time spent is greater than 50% in coordination of care (as documented) at patient's floor/unit and/or counseling patient: Total time spent with greater than 50% in coordination of care (as documented) at patient's floor/unit and/or counseling patient:: 25 - 35 minutes QUALITY VTE Deep Vein Thrombosis/Pulmonary Embolism Present on Admission: No
[2022-08-15] MEDS: cefTRIAXone 1 GM VIAL IV SCH ×2 (09:30→18:42)
[2022-08-15] MEDS: traZODone HCL 50 MG TABLET PO PRN (22:07)
[2022-08-15] MEDS: SENNOSIDES 1 TABLET PO SCH (22:07)
[2022-08-16] MEDS: ACETAMINOPHEN 325 MG TABLET PO PRN ×4 (06:14→22:53)
[2022-08-16] MEDS: 0.9 % SODIUM CHLORIDE 10 ML SYRINGE IV SCH ×3 (06:15→22:55)
[2022-08-16 07:25] LABS: ALT/SGPT < 5 U/L (<40); AST/SGOT 16 U/L (<32); Albumin 2.7 gm/dL (3.2-5.2); Alkaline Phosphatase 74 U/L (39-117); Bilirubin,Total 0.2 mg/dL (0.1-1.0); Blood Urea Nitrogen 77 mg/dL (8-23); Calcium 8.7 mg/dL (8.6-10.4); Carbon Dioxide 27 mmol/L (22-30); Chloride 99 mmol/L (96-108); Globulin 2.8 gm/dL (2.2-3.7); Glomerular Filtration Rate 16; Glucose 101 mg/dL (70-105)
[2022-08-16 07:26] LABS: Basophils # (Auto) 0.02 K/mcL (0.00-0.30); Basophils % (Auto) 0.5 % (0.0-2.0); Eosinophils # (Auto) 0.02 K/mcL (0.00-0.70); Eosinophils % (Auto) 0.5 % (0.0-7.0); Hematocrit 28.2 % (34.1-44.9); Hemoglobin 9.1 g/dL (11.2-15.7); Lymphocytes # (Auto) 1.16 K/mcL (1.50-4.80); Lymphocytes % (Auto) 29.7 % (15.5-49.0); Mean Cell Volume 93.7 fL (80.0-100.0); Mean Corpuscular HGB Conc 32.3 g/dL (31.0-36.0); Mean Platelet Volume 9.5 fL (8.8-12.5); Monocytes % (Auto) 17.9 % (1.0-12.0); Neutrophils % (Auto) 49.1 % (38.0-78.0); Platelet Count 234 K/mcL (140-440); RBC 3.01 M/mcL (3.59-5.38); Red Cell Distribution Width 14.7 % (11.5-14.5); WBC 3.9 K/mcL (4.5-11.0)
[2022-08-16] MEDS: INSULIN LISPRO 1 UNIT/0.01 ML UNIT SQ SCH ×4 (07:33→22:32)
[2022-08-16] MEDS: LEVOTHYROXINE 75 MCG TABLET PO SCH (07:33)
[2022-08-16] MEDS ORDERED: FLU VACC QS2022-23(6MOS UP)/PF 60 MCG/0.5 ML SYRINGE IM ONE (09:00)
[2022-08-16] MEDS: cefTRIAXone 1 GM VIAL IV SCH ×2 (09:05→22:29)
[2022-08-16] MEDS: INSULIN GLARGINE, HUMAN 1 UNIT/0.01 ML SQ SCH ×2 (09:05→22:29)
[2022-08-16] MEDS: VITAMIN D3 25 MCG TABLET PO SCH (09:06)
[2022-08-16] MEDS: cloNIDine HCL 0.1 MG TABLET PO SCH ×2 (09:06→22:31)
[2022-08-16] MEDS: CARBIDOPA/LEVODOPA 25/100 TABLET PO SCH ×3 (09:06→22:30)
[2022-08-16] MEDS: TORSEMIDE 20 MG TABLET PO SCH ×2 (09:06→22:30)
[2022-08-16] MEDS: DOCUSATE SODIUM 100 MG CAPSULE PO SCH ×2 (09:06→22:31)
[2022-08-16] MEDS: HEPARIN 5,000 UNIT/ML VIAL SQ SCH ×2 (09:06→22:29)
[2022-08-16] MEDS: ALLOPURINOL 100 MG TABLET PO SCH (09:07)
[2022-08-16] MEDS: MULTIVIT,THER IRON,CA,FA & MIN 1 TABLET PO SCH ×2 (09:07→22:30)
--- NOTE | 2022-08-16 12:02 | Internal Med Progress Note ---
SUBJECTIVE Subjective Patient information: Note initiated : 08/16/22 at 11:58 am Service Date, if different from initiated Date: [] Patient: Bethany Chirinos 81 y/o F admitted on 08/13/22 for Weakness. Chief Complaint: [] Interval history: Ms. 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 She is unvaccinated against COVID-pneumonia. She was self test positive for COVID- pneumonia 9 days ago. She have symptoms including general body weakness, shortness of breath, nonproductive cough, respiratory wheezings, subjective fever and shaking chills, diaphoresis, and 4 episodes of diarrhea/loose stool. She came to the ED for evaluation today due to the worsening of her symptoms aforementioned. She is saturating in the mid 90s on room air. Labs significant for lack of leukocytosis WBC 5.0. D-dimer 1.65. POC potassium 5.8. POC BUN and creatinine 113 and 3.1, respectively. pro-BNP 1139. Urine indicis showing moderate leukocyte Esterase. Chest x-ray showing right basilar infiltrate consistent with pneumonia. Admission request was called for pneumonia, bacterial versus COVID, as well as hypokalemia. 08/14: Afebrile overnight. Patient is currently on room air. Blood pressure stable. Urine culture growing gram negative bacillus; blood culture no growth to date. Serum potassium level 4.5, serum Cr level 2.6 Patient experience improving degree of shortness of breath. c/o productive cough and respiratory wheezing. c/o chills, denies fever or sweating. Poor appetite. Improving degree of general body weakness. Continue Rocephin while monitoring for culture results. Supplemental oxygen therapy as needed. Continue Torsemide, hold Aldactone. Physical therapy evaluation and treatment for placement planning. 08/15: Patient has been afebrile overnight. Patient is currently on 1 L/min of nasal cannula supplemental oxygen. Urine culture growing gram-negative bacillus, blo od culture no growth today. Patient is complaining of improving degree of shortness of breath. She is complaining of productive cough. She does not have any respiratory wheezings. She is coming of chills but denies any fever or diaphoresis. Denies any chest pain. Improving degree of general body weakness. Continue Rocephin while monitoring for culture results. Supplemental oxygen therapy as needed. Continue Torsemide, hold Aldactone due to recent hyperkalemia. Physical therapy evaluation and treatment for placement planning. 08/16: Patient has been off the oxygen since overnight. Patient has been afebrile overnight. Urine culture grew Proteus mirabilis and E. coli, please see the report for sensitivity. Blood culture no growth today. Patient denies any more shortness of breath. He is complaining of productive cough. He denies any respiratory wheezings. She denies any fever, chills, or diaphoresis. She ambulates well earlier this morning and her body strength has been improving. Continue day 4 out of 5 of the Rocephin. Supplemental oxygen therapy as needed. Continue Torsemide, hold Aldactone due to recent hyperkalemia. Tentative discharge date: Wednesday08/17/22. Constitutional Vitals: Vital Signs Temp Pulse Resp BP Pulse Ox O2 Del Method O2 Flow Rate 36.4 C 54 L 16 138/49 93 1 08/16/22 11:41 08/16/22 11:41 08/16/22 11:41 08/16/22 11:41 08/16/22 11:41 08/16/22 11:41 08/16/22 00:00 Period Temp Pulse Resp BP Sys/[place] Pulse Ox O2 Del Method O2 Flow Rate Last 24 Hr 36.1 C-36.4 C 48-65 14-18 106-142/45-85 91-98 Nasal Cannula- Room Air 1-1 Intake and Output 08/15/22 08/16/22 08/16/22 19:59 03:59 11:59 Intake Total 960 240 200 Output Total 1200 400 200 Balance -240 -160 0 Weight 115.258 kg Intake & Output: Intake & Output 08/15/22 08/16/22 08/16/22 19:59 03:59 11:59 Intake Total 960 240 200 Output Total 1200 400 200 Balance -240 -160 0 Weight 115.258 kg Intake: Oral 960 240 200 Output: Void Amount 1200 400 200 Other: Meal Lunch Percent of Meal Consumed 25% Feeding Ability Assist with Tray Set Up Urine Appearance Clear Clear Clear External Urinary Catheter Clear Urine Color Yellow Yellow Yellow External Urinary Catheter Yellow Exam: Masked facies Head Head exam: Present atraumatic and normal inspection Eye Eye exam: Present normal appearance ENT ENT exam: Present mucous membranes moist, normal exam and normal external ear exam Neck Neck exam: Present normal inspection Respiratory Respiratory exam: Present normal respiratory exam Cardiovascular Cardiovascular exam: Present normal rate and rhythm GI/Abdominal GI/Abdominal exam: Present normal bowel sounds Back Exam Back exam: Present normal inspection Neurological Exam Neurological exam: Present alert and oriented X3 Skin Skin exam: Present intact and warm OBJ DATA Labs CBC & Chem 7: 08/16/22 06:00 08/16/22 06:00 Labs: Abnormal Lab Results 08/16/22 08/16/22 08/15/22 06:00 06:00 05:58 WBC 3.9 L RBC 3.01 L Hgb 9.1 L Hct 28.2 L RDW 14.7 H Immature Gran % (Auto) 2.3 H [place] % (Auto) 17.9 H Lymph # (Auto) 1.16 L [place] # (Auto) Immature Gran # 0.09 H D-Dimer BUN 77 H 76 H Creatinine 2.7 H 2.9 H Hemoglobin A1c NT-Pro-B Natriuret Pep Total Protein 5.5 L 5.7 L Albumin 2.7 L 2.7 L Albumin/Globulin Ratio 0.9 L Procalcitonin Urine Protein Urine Occult Blood Ur Leukocyte Esterase Urine WBC Urine Bacteria Urine Mucus 08/15/22 08/14/22 08/14/22 05:58 05:55 05:55 WBC RBC 3.38 L 3.19 L Hgb 9.9 L 9.4 L Hct 31.9 L 29.6 L RDW 14.7 H 14.6 H Immature Gran % (Auto) 2.7 H 2.0 H [place] % (Auto) 15.7 H 20.5 H Lymph # (Auto) 1.02 L 0.97 L [place] # (Auto) 1.05 H Immature Gran # 0.13 H 0.10 H D-Dimer BUN 79 H Creatinine 2.6 H Hemoglobin A1c NT-Pro-B Natriuret Pep Total Protein 5.5 L Albumin 2.8 L Albumin/Globulin Ratio Procalcitonin Urine Protein Urine Occult Blood Ur Leukocyte Esterase Urine WBC Urine Bacteria Urine Mucus 08/13/22 08/13/22 08/13/22 19:27 13:16 11:47 WBC RBC Hgb Hct RDW Immature Gran % (Auto) [place] % (Auto) Lymph # (Auto) [place] # (Auto) Immature Gran # D-Dimer BUN Creatinine Hemoglobin A1c 6.9 H NT-Pro-B Natriuret Pep 1139.0 H Total Protein Albumin Albumin/Globulin Ratio Procalcitonin Urine Protein 100 A Urine Occult Blood Trace-intact A Ur Leukocyte Esterase Moderate A Urine WBC 66 H Urine Bacteria Mod A Urine Mucus Few A 08/13/22 08/13/22 08/13/22 11:44 11:44 11:44 WBC RBC 3.48 L Hgb 10.8 L Hct 32.4 L RDW 15.0 H Immature Gran % (Auto) 1.6 H [place] % (Auto) 19.9 H Lymph # (Auto) 0.87 L [place] # (Auto) 0.99 H Immature Gran # 0.08 H D-Dimer 1.65 H BUN Creatinine Hemoglobin A1c NT-Pro-B Natriuret Pep Total Protein Albumin Albumin/Globulin Ratio Procalcitonin 0.40 H Urine Protein Urine Occult Blood Ur Leukocyte Esterase Urine WBC Urine Bacteria Urine Mucus Meds: Medications Acetaminophen (Acetaminophen 325 Mg Tablet) 650 mg PO Q6HP PRN; Protocol PRN Reason: Per Pain Protocol/Fever > 101 Last Admin: 08/16/22 06:14 Dose: 650 mg Albuterol/Ipratropium (Ipratropium/Albuterol 3 Ml Ampul.Neb) 3 ml NEB Q4HRT PRN PRN Reason: Wheezing Allopurinol (Allopurinol 100 Mg Tablet) 100 mg PO QDAY [facility] Last Admin: 08/16/22 09:07 Dose: 100 mg Carbidopa/Levodopa (Carbidopa/Levodopa 25/100 Tablet) 2 tab PO TID [facility] Last Admin: 08/16/22 09:06 Dose: 2 tab Ceftriaxone Sodium (Ceftriaxone 1 Gm Vial) 1 gm IV Q24H [facility] Last Admin: 08/16/22 09:05 Dose: 1 gm Clonidine HCl (Clonidine Hcl 0.1 Mg Tablet) 0.2 mg PO BID [facility] Last Admin: 08/16/22 09:06 Dose: 0.2 mg Dextrose (Dextrose 50% 50 Ml Vial) 0 ml IV UD PRN PRN Reason: Per Sliding Scale Diagnostic Test (Pha) (Accu-Chek 1 Each Strip) 1 each FS ACHS [facility] Last Admin: 08/16/22 11:40 Dose: 1 each Docusate Sodium (Docusate Sodium 100 Mg Capsule) 100 mg PO BID [facility] Last Admin: 08/16/22 09:06 Dose: 100 mg Glucose (Dextrose 31 Gm Oral.Susp) 15 gm PO PRN PRN PRN Reason: Hypoglycemia Guaifenesin (Guaifenesin/Dextromethorphan Oral Allie) 10 ml PO Q4HP PRN PRN Reason: Cough Last Admin: 08/13/22 21:08 Dose: 10 ml Heparin Sodium (Porcine) (Heparin 5,000 Unit/Ml Vial) 5,000 unit SQ Q12 [facility] Last Admin: 08/16/22 09:06 Dose: 5,000 unit Ibuprofen (Ibuprofen 600 Mg Tablet) 600 mg PO QIDP PRN; Protocol PRN Reason: Per Pain Protocol/Fever > 101 Insulin Glargine (Insulin Glargine, Human 1 Unit/0.01 Ml) 38 unit SQ BID [facility] Last Admin: 08/16/22 09:05 Dose: 38 units Insulin Human Lispro (Insulin Lispro 1 Unit/0.01 Ml Unit) 0 unit SQ [facility]; Protocol Last Admin: 08/16/22 11:40 Dose: Not Given Iron Carb/Multivit/[place]/Folic Acid (Multivit,Ther Iron,Ca,Fa & Min 1 Tablet) 1 tab PO BID [facility] Last Admin: 08/16/22 09:07 Dose: 1 tab Levothyroxine Sodium (Levothyroxine 75 Mcg Tablet) 75 mcg PO 0730 [facility] Last Admin: 08/16/22 07:33 Dose: 75 mcg Loperamide HCl (Loperamide 2 Mg Capsule) 2 mg PO PRN PRN PRN Reason: Diarrhea Ondansetron HCl (Ondansetron 4 Mg/2 Ml Vial) 4 mg IV Q6HP PRN PRN Reason: Nausea And Vomiting Last Admin: 08/14/22 10:27 Dose: 4 mg Senna (Sennosides 1 Tablet) 2 tab PO HS [facility] Last Admin: 08/15/22 22:07 Dose: 2 tab Sodium Chloride (0.9 % Sodium Chloride 10 Ml Syringe) 10 ml IV Q8 [facility] Last Admin: 08/16/22 06:15 Dose: 10 ml Torsemide (Torsemide 20 Mg Tablet) 50 mg PO BID [facility] Last Admin: 08/16/22 09:06 Dose: 50 mg Trazodone HCl (Trazodone Hcl 50 Mg Tablet) 25 mg PO HSP PRN PRN Reason: Insomnia Last Admin: 08/15/22 22:07 Dose: 25 mg Vitamin D (Vitamin D3 25 Mcg Tablet) 50 mcg PO QDAY [facility] Last Admin: 08/16/22 09:06 Dose: 50 mcg A/P Assessment and plan (1) Pneumonia: Status: Acute (2) COVID: Status: Acute (3) Hyperkalemia: Status: Acute (4) 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 Pneumonia, CoVID +/- bacterial superinfection: Inpatient med surg telemetry Serial lactic acid 0.9 Procalcitonin 0.40 CEPHEID Blood culture, no growth to date cbc w/ auto diff in the morning to trend WBC Since she was tested positive for CoVID 9 days ago, she is currently outside the therapeutic window for Paxlovid Given poor renal functions, Remdesivir is contraindicated Supplemental oxygen therapy as needed Rocephin Zithromax Physical therapy evaluation and treatment 2. Hypertension in T2DM with diabetic nephropathy with chronic kidney disease V: Avoid nephrotoxic agents Hold Aldactone due to concurrent hyperkalemia Torsemide Clonidine HgA1c 6.9 Hold any oral hypoglycemics Insulin Lantus 50 unit BID Insulin Lispro SSI AC HS Accu Check AC HS Hypoglycemia protocol Diabetic/renal diet 3. Hyperkalemia: RESOLVED Serum potassium 5.8-->4.5-->4.1 s/p Lasix 40mg IV once Repeat serum potassium level this evening Hold Aldactone due to recent hyperkalemia 4. h/o congestive heart failure: Saline lock with diuretics first IV Lasix then Torsemide Hold Aldactone due to recent hyperkalemia Supplemental oxygen therapy as needed 5. Parkinson's disease: Continue Sinemet 6. Urinary tract infection: Urine culture, Proteus mirabilis and E coli Blood culture, no growth to date cbc w/ auto diff in the morning to trend WBC Rocephin day 7. Hypothyroidism: Continue thyroid replacement therapy 8. h/o brain tumor: Patient's cannot provide further details about her brain tumor, nor is she actively being followed with oncology because she stated that there is nothing to be done about it anyway GI ppx: not currently indicated DVT ppx: Heparin Code status: DNR Prognosis: Stable Disposition: inpatient med surg; Tentative discharge date: Wednesday08/17/22 Time Spent With Patient Time: Total time spent is greater than 50% in coordination of care (as documented) at patient's floor/unit and/or counseling patient: Total time spent with greater than 50% in coordination of care (as documented) at patient's floor/unit and/or counseling patient:: 25 - 35 minutes QUALITY VTE Deep Vein Thrombosis/Pulmonary Embolism Present on Admission: No
[2022-08-16] MEDS: SENNOSIDES 1 TABLET PO SCH (22:30)
[2022-08-16] MEDS: traZODone HCL 50 MG TABLET PO PRN (22:31)
[2022-08-17] MEDS: 0.9 % SODIUM CHLORIDE 10 ML SYRINGE IV SCH ×2 (03:45→06:45)
[2022-08-17 07:17] LABS: Basophils # (Auto) 0.01 K/mcL (0.00-0.30); Basophils % (Auto) 0.3 % (0.0-2.0); Eosinophils # (Auto) 0.02 K/mcL (0.00-0.70); Eosinophils % (Auto) 0.6 % (0.0-7.0); Hematocrit 28.5 % (34.1-44.9); Hemoglobin 9.2 g/dL (11.2-15.7); Lymphocytes # (Auto) 1.22 K/mcL (1.50-4.80); Lymphocytes % (Auto) 34.1 % (15.5-49.0); Mean Cell Volume 93.4 fL (80.0-100.0); Mean Corpuscular HGB Conc 32.3 g/dL (31.0-36.0); Mean Platelet Volume 9.6 fL (8.8-12.5); Monocytes # (Auto) 0.63 K/mcL (0.10-0.90); Monocytes % (Auto) 17.6 % (1.0-12.0); Neutrophils % (Auto) 44.3 % (38.0-78.0); Platelet Count 247 K/mcL (140-440); RBC 3.05 M/mcL (3.59-5.38); Red Cell Distribution Width 14.7 % (11.5-14.5); WBC 3.6 K/mcL (4.5-11.0)
[2022-08-17 07:59] LABS: ALT/SGPT 5 U/L (<40); AST/SGOT 93 U/L (<32); Albumin 2.8 gm/dL (3.2-5.2); Alkaline Phosphatase 74 U/L (39-117); Bilirubin,Total < 0.2 mg/dL (0.1-1.0); Blood Urea Nitrogen 76 mg/dL (8-23); Calcium 9.2 mg/dL (8.6-10.4); Carbon Dioxide 25 mmol/L (22-30); Chloride 100 mmol/L (96-108); Globulin 2.8 gm/dL (2.2-3.7); Glomerular Filtration Rate 17; Glucose 55 mg/dL (70-105)
--- NOTE | 2022-08-17 08:40 | Discharge Summary ---
Discharge Provider Provider IMPORTANT FOLLOW-UP INFORMATION FOR PCP: Patient information: Note initiated : 08/17/22 at 8:38 am Service Date, if different from initiated Date: [] Patient: Bethany Chirinos 81 y/o F admitted on 08/13/22 for Weakness. Chief Complaint: [] Date of admission: 08/13/22 18:24 Discharge date: 08/17/22 Primary care physician: PCP No Attending physician on admission: Kedar Hollingsworth Consults: 08/13/22 Consult to Physician [CONS] Stat Comment: Consulting Provider: Kedar Hollingsworth Reason For Exam: Physician to Consult Attending physician on discharge: Kedar Sinha [place] COURSE Hospital Course Hospital course: Ms. 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 She is unvaccinated against COVID-pneumonia. She was self test positive for COVID- pneumonia 9 days ago. She have symptoms including general body weakness, shortness of breath, nonproductive cough, respiratory wheezings, subjective fever and shaking chills, diaphoresis, and 4 episodes of diarrhea/loose stool. She came to the ED for evaluation today due to the worsening of her symptoms aforementioned. She is saturating in the mid 90s on room air. Labs significant for lack of leukocytosis WBC 5.0. D-dimer 1.65. POC potassium 5.8. POC BUN and creatinine 113 and 3.1, respectively. pro-BNP 1139. Urine indicis showing moderate leukocyte Esterase. Chest x-ray showing right basilar infiltrate consistent with pneumonia. Admission request was called for pneumonia, bacterial versus COVID, as well as hypokalemia. 08/14: Afebrile overnight. Patient is currently on room air. Blood pressure stable. Urine culture growing gram negative bacillus; blood culture no growth to date. Serum potassium level 4.5, serum Cr level 2.6 Patient experience improving degree of shortness of breath. c/o productive cough and respiratory wheezing. c/o chills, denies fever or sweating. Poor appetite. Improving degree of general body weakness. Continue Rocephin while monitoring for culture results. Supplemental oxygen therapy as needed. Continue Torsemide, hold Aldactone. Physical therapy evaluation and treatment for placement planning. 08/15: Patient has been afebrile overnight. Patient is currently on 1 L/min of nasal cannula supplemental oxygen. Urine culture growing gram-negative bacillus, b lood culture no growth today. Patient is complaining of improving degree of shortness of breath. She is complaining of productive cough. She does not have any respiratory wheezings. She is coming of chills but denies any fever or diaphoresis. Denies any chest pain. Improving degree of general body weakness. Continue Rocephin while monitoring for culture results. Supplemental oxygen therapy as needed. Continue Torsemide, hold Aldactone due to recent hyperkalemia. Physical therapy evaluation and treatment for placement planning. 08/16: Patient has been off the oxygen since overnight. Patient has been afebrile overnight. Urine culture grew Proteus mirabilis and E. coli, please see the report for sensitivity. Blood culture no growth today. Patient denies any more shortness of breath. He is complaining of productive cough. He denies any respiratory wheezings. She denies any fever, chills, or diaphoresis. She ambulates well earlier this morning and her body strength has been improving. Continue day 4 out of 5 of the Rocephin. Supplemental oxygen therapy as needed. Continue Torsemide, hold Aldactone due to recent hyperkalemia. Tentative discharge date: Wednesday08/17/22. 08/17: Discharged home today. 2 week PCP follow up appointment made for her. All questions were answered prior to patient being physically discharged. Discharge diagnosis: CoVID pneumonia, UTI Time Spent with Patient Time attestation: Total time spent providing and/or coordinating discharge services: Time spent: Less than 30 minutes EXAM Constitutional Vitals: Temp Pulse Resp BP Pulse Ox O2 Del Method O2 Flow Rate 36.3 C 56 L 20 129/43 97 1 08/17/22 08:00 08/17/22 08:00 08/17/22 08:00 08/17/22 08:00 08/17/22 08:00 08/17/22 08:00 08/16/22 00:00 General appearance: cooperative and no acute distress Exam: Masked facies Head Head exam: Present atraumatic and normocephalic Eye Eye exam: Present EOMI and PERRL ENT ENT exam: Present mucous membranes moist, normal exam and normal external ear exam Neck Neck exam: Present normal inspection; Absent lymphadenopathy, tenderness or thyromegaly Respiratory Respiratory exam: Absent accessory muscle use, respiratory distress or wheezes Cardiovascular Cardiovascular exam: Present normal rate and rhythm; Absent JVD GI/Abdominal GI/Abdominal exam: Present normal bowel sounds and soft; Absent organomegaly or tenderness Extremities Exam Extremities exam: Present full ROM, normal capillary refill and normal inspection; Absent tenderness Neurological Exam Neurological exam: Present alert, CN II-XII intact and oriented X3; Absent motor sensory deficit Psychiatric Psychiatric exam: Present normal affect and normal mood; Absent anxious or depressed Skin Skin exam: Present dry and intact Discharge Data Data Completed and Pending Labs on day of discharge: Labs from last 24 hours 08/17/22 08/17/22 06:00 06:00 WBC 3.6 L RBC 3.05 L Hgb 9.2 L Hct 28.5 L MCV 93.4 MCH 30.2 MCHC 32.3 RDW 14.7 H Plt Count 247 MPV 9.6 Immature Gran % (Auto) 3.1 H Neut % (Auto) 44.3 Lymph % (Auto) 34.1 [place] % (Auto) 17.6 H Eos % (Auto) 0.6 Baso % (Auto) 0.3 Lymph # (Auto) 1.22 L [place] # (Auto) 0.63 Eos # (Auto) 0.02 Baso # (Auto) 0.01 Immature Gran # 0.11 H Absolute Neutrophils 1.59 L Sodium 138 Potassium 3.6 Chloride 100 Carbon Dioxide 25 Anion Gap 13.0 BUN 76 H Creatinine 2.6 H GFR Calculation 17 Glucose 55 L Calcium 9.2 Total Bilirubin < 0.2 AST 93 H ALT 5 Alkaline Phosphatase 74 Total Protein 5.6 L Albumin 2.8 L Globulin 2.8 Albumin/Globulin Ratio 1.0 Preliminary micro results at discharge 08/13/22 19:28 Blood Culture - Preliminary Blood 08/13/22 19:27 Blood Culture - Preliminary Blood Discharge Plan Patient/Caregiver Discharge Instructions Activity: increase activity as tolerated Diet: Consistent Carbohydrate Prescriptions: New dextromethorphan-guaifenesin [Diabetic Tussin DM] 10-100 mg/5 mL Liquid 10 ml PO Q4HP PRN (Reason: Cough) Qty: 500 0RF Continued carbidopa-levodopa 25-100 mg tablet 2 tab PO TID Rx Instructions: takes three times a day. (DME) 4 Wheel walker with seat and brakes See Rx Instructions .Route .MEDSUPPLY Qty: 1 0RF Rx Instructions: As directed allopurinol 100 mg tablet 100 mg PO QDAY Qty: 90 4RF torsemide 100 mg tablet 50 mg PO BID Qty: 90 3RF levothyroxine 75 mcg tablet 75 mcg PO DAILY Qty: 90 4RF (DME) BD Pen Needle Short U/F 31G X 8MM See Rx Instructions .Route .MEDSUPPLY Qty: 60 12RF Rx Instructions: Inject 6 times per day 2 Lantus 4 sliding scare, regular Not Applicable; Inject 6 times per day 2 Lantus 4 sliding scare, regular Aranesp (in polysorbate) 60 mcg/mL solution 60 mcg subcut Q4W PRN (Reason: Anemia) Qty: 1 0RF spironolactone 25 mg tablet 12.5 mg PO QAM Qty: 90 4RF cholecalciferol (vitamin D3) 50 mcg (2,000 unit) capsule 2,000 unit PO QDAY Qty: 90 4RF B-D Insulin Syr 3/10 Ml 1 dose NOTAPPLIC QID Rx Instructions: Pt testing 4 times a day (DME) Accu-Chek Gin Plus test strp Strip See Rx Instructions .ROUTE .MEDSUPPLY Qty: 10 Rx Instructions: As directed Therapeutic Diabetic Wide Shoes 1 dose NOTAPPLIC QAM Rx Instructions: Receives from [employer] and Supplies 1 dose NOTAPPLIC HS Label Comments: "we have the machine but I don't use it" Rx Instructions: As Directed acetaminophen [Tylenol Arthritis Pain] 650 mg tablet extended release 650 mg PO ONCE PRN (Reason: Pain) Novolog Flexpen U-100 Insulin 100 unit/mL (3 mL) insulin pen See Rx Instructions SUB-Q QDAY Qty: 45 12RF Dose Instruction: sliding scale SUB-Q QDAY Rx Instructions: Use twice a day per sliding scale, max of 20units daily Accu Chek Gin Plus w/Device Kit See Rx Instructions NOTAPPLIC QID Qty: 120 12RF Rx Instructions: Use as directed to test Qid Not Applicable four times daily; Use as directed to test Qid Basaglar KwikPen U-100 Insulin 100 unit/mL (3 mL) insulin pen 38 unit SUB-Q BID Rx Instructions: takes 38 mg twice a day. clonidine HCl 0.2 mg tablet 0.2 mg PO BID Qty: 180 3RF docusate sodium 100 mg Capsule 100 mg PO QDAY PreserVision AREDS-2 250-90-40-1 mg Capsule 1 tab PO BID Follow Up Plan Follow up with: PCP, PCP [Other] No,PCP [Primary Care Provider] - Patient Disposition: Home, Self-Care Prognosis: Fair Rehab Potential: Good I certify that the patient requires SNF services: No Overall status at discharge: patient is back to baseline Discharge Orders: Discharge Order (Routine); Ordered 08/17/22 Ordered By: Kedar ROMO VTE Deep Vein Thrombosis/Pulmonary Embolism Present on Admission: No
[2022-08-17] MEDS: HEPARIN 5,000 UNIT/ML VIAL SQ SCH (09:46)
[2022-08-17] MEDS: MULTIVIT,THER IRON,CA,FA & MIN 1 TABLET PO SCH (09:47)
[2022-08-17] MEDS: LEVOTHYROXINE 75 MCG TABLET PO SCH (09:47)
[2022-08-17] MEDS: DOCUSATE SODIUM 100 MG CAPSULE PO SCH (09:47)
[2022-08-17] MEDS: ALLOPURINOL 100 MG TABLET PO SCH (09:47)
[2022-08-17] MEDS: VITAMIN D3 25 MCG TABLET PO SCH (09:47)
[2022-08-17] MEDS: CARBIDOPA/LEVODOPA 25/100 TABLET PO SCH (09:47)
[2022-08-17] MEDS: INSULIN GLARGINE, HUMAN 1 UNIT/0.01 ML SQ SCH (09:48)
[2022-08-17] MEDS: cefTRIAXone 1 GM VIAL IV SCH (09:48)
[2022-08-17] MEDS: TORSEMIDE 20 MG TABLET PO SCH (09:48)
[2022-08-17] MEDS: cloNIDine HCL 0.1 MG TABLET PO SCH (09:48)
[2022-08-17] MEDS: INSULIN LISPRO 1 UNIT/0.01 ML UNIT SQ SCH (09:52)
== END 2022-08-17 12:00 | disposition home health service (06) | DRG 177 ==
LOC: ED 10:39 → MEDSUR 18:24
PROVIDERS: ADMIT Internal Medicine; ATTEND Internal Medicine